=== PATIENT | female | born 1955 | race Caucasian/White ===

== ENCOUNTER → 2016-07-08 | Outpatient (CLI) | payer OTHER ==
--- NOTE | 2016-07-08 21:59 | WWHP ---
DATE OF SERVICE: 07/08/2016 CHIEF COMPLAINT: Patient is here for her routine gynecologic exam. 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 She states she has had normal Pap smears since then. The patient is without gynecologic complaints. Her last Pap smear was in 2011. The patient has a history of lichen sclerosis of the vulva and has occasional pruritus in the area where it was excised years ago. She uses Clobetasol ointment p.r.n. and this is fairly infrequent. She is otherwise without complaints. PAST MEDICAL HISTORY: Chronic hypertension and carpal tunnel syndrome, arthritis of the neck, back, and hands and gastroesophageal reflux disease. Dr. Rizzo is her primary care physician. MEDICATIONS: 1. Enalapril 5/12.5, 1 daily. 2. Motrin 400 mg daily p.r.n. 3. Tramadol 25 mg daily. 4. Clobetasol ointment 0.05% p.r.n. 5. Prilosec 20 mg daily. ALLERGIES: No known drug allergies. PAST SURGICAL HISTORY: KEYSHAWN in 1978. Cold knife conization of the cervix prior to 1978 and D&C was also performed at that time, colonoscopy 2014. Past OB history: One vaginal delivery. 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 She was diagnosed with genital HSV in 2011 and also history of lichens sclerosis which was excised in 2003. She has no other history of STDs. SOCIAL HISTORY: She previously smoked cigarettes but quit in 2004 she has about 10 to 20 alcoholic drinks per year and denies drug use. 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 FAMILY HISTORY: Paternal aunt had breast cancer. Brother and father had prostate cancer. Mother had aortic stenosis. Father also had a CVA and diabetes. REVIEW OF SYSTEMS: She thinks she has lost about 20 pounds after she went back to working in the operating room from a sitting job about a year ago. She denies respiratory, cardiac, or GI problems. PHYSICAL EXAM: Blood pressure 144/82. Height 5 feet 7 inches. Weight was refused by the patient but she states she recently weighed 170 pounds when she weighed herself. Temperature 97.8, pulse 57. This is a well-developed, well-nourished white female who is alert and oriented x3 in no acute distress. HEENT is within normal limits. NECK: Supple without mass or thyromegaly. CHEST AND LUNGS: Clear to auscultation. HEART: Regular rate and rhythm. Breasts are without mass or discharge. Axillary exam is negative for adenopathy. BACK: Negative for CVA tenderness. ABDOMEN: Soft, nontender, without palpable masses. PELVIC EXAM: External genitalia. There is a slightly scarred area on the left labia at approximately the 4:00 position. This appears to be where she had part of the vulva removed and where lichen sclerosis was found. The tissue is slightly paler than the surrounding tissue. There is no excoriation or erythema noted. Vagina reveals mild atrophy without lesions. The vaginal cuff was slightly friable upon doing the Pap smear of the vaginal cuff. There is no evidence of prolapse. Bimanual exam is negative for mass or tenderness. Rectovaginal exam is negative for mass or tenderness and is negative for occult blood. EXTREMITIES: Nontender. IMPRESSION: 1. A 60-year-old menopausal female, status post total abdominal hysterectomy for microinvasive cancer of the cervix in 1978. 2. History of focal lichen sclerosis of the vulva which was located on the left vulva and is status post excision. She continues to have occasional pruritus in this area. PLAN: 1. Pap smear of the vaginal cuff was performed. We will continue to do regular Pap smears because of her history. 2. Self-breast examination was discussed. 3. Mammogram was done in 05/06 and was benign. We will repeat this in one year. 4. Trial of Premarin vaginal cream 1 to 2 grams intravaginally 2 times per week because of some vaginal dryness and dyspareunia associated with it. 5. Temovate 0.05% ointment p.r.n. to the vulva. She will call if symptoms are worsening or if she is needing to use this frequently. 6. Osteoporosis prevention was discussed. I have recommended bone density testing since her last one was done more than 10 years ago and was normal. She states she will do this next year. 7. She will return in one year.
== END | disposition home or self-care (01) ==

== ENCOUNTER → 2016-11-10 | Outpatient (CLI) | payer OTHER ==
[2016-11-10 16:04] LABS: Potassium 4.3 mmol/L (3.5-5.1)
== END | disposition home or self-care (01) ==
LOC: LABWHC1 15:27
PROVIDERS: ATTEND Orthopaedic Surgery Hand Surgery
DX: Z01.812 Encounter for preprocedural laboratory examination (principal); M19.90 Unspecified osteoarthritis, unspecified site
CPT/HCPCS: 36415; 80051

== ENCOUNTER → 2017-03-16 | Outpatient (CLI) | payer OTHER ==
--- NOTE | 2017-03-16 17:06 | XR ---
EXAMINATION TYPE: XR chest 2V DATE OF EXAM: 03/16/2017 COMPARISON: July 25, 2010 HISTORY: Cough TECHNIQUE: Frontal and lateral views of the chest are obtained. FINDINGS: There is no heart failure nor confluent pneumonic infiltrate. Thoracic aorta is atheromato us. There is no sign of pleural effusion. Bony thorax is intact. Heart size is normal. IMPRESSION: Atheromatous aorta. Minimal subsegmental atelectasis in the left lower lung field is new compared to old exam.
== END | disposition home or self-care (01) ==
LOC: RADXRMAIN 16:30
PROVIDERS: ATTEND Internal Medicine
DX: J98.11 Atelectasis (principal); I70.0 Atherosclerosis of aorta
CPT/HCPCS: 71020

== ENCOUNTER → 2017-07-12 | Outpatient (CLI) | payer OTHER ==
[2017-07-08 15:27] VITALS: BMI 26.6
[2017-07-12 14:33] VITALS: BP 144/83; PULSE 63; RESP 16; TEMP 98.3
--- NOTE | 2017-07-12 15:12 | P.CONS ---
History of Present Illness - Reason for Consult Consult date: 07/12/17 - History of Present Illness This is 61 years old female with a chronic history of severe low back pain, in 2013 she started having low back pain with radiation to the right hip , she took non-steroidal anti-inflammatory medication and she was doing fairly well until, when she was at work , he was bending corking on some equipment, she started feeling severe low back pain, pain is constant radiated to both hips and groin area, radiated to the whole lower extremity bilaterally, [place] today with numbness and tingling sensation, scar intensity of the pain between [place] increased with any activity to 10 over 10, and some physical therapy with minimal improvement, she is able to ambulate on her own, she reported that occasionally she feels that he had no ability to move her legs, denies any fever or night sweats which she denies any change in the bowel movement or urination Past Medical History Past Medical History: Cancer, Eye Disorder, GERD/Reflux, Hyperlipidemia, Hypertension, Osteoarthritis (OA) Additional Past Medical History / Comment(s): Hx Cervical Ca-1978. Bilat Narrow Angle Glaucoma. pain lower back pt states has 1 ruptured disc and 2 herniated disc History of Any Multi-Drug Resistant Organisms: None Reported Past Surgical History: Appendectomy, Back Surgery, Hysterectomy, Orthopedic Surgery, Tonsillectomy Additional Past Surgical History / Comment(s): CTR-BILAT. D & C. COLONOSCOPY. EGD. LT KNEE SCOPE. BILAT IRIDOTOMY. CERVICAL FUSION X 2. CLOSED REDUCTION RT WRIST X 3 CHILD Past Anesthesia/Blood Transfusion Reactions: No Reported Reaction Past Psychological History: No Psychological Hx Reported Smoking Status: Never smoker Past Alcohol Use History: Rare Past Drug Use History: None Reported - Past Family History Father Family Medical History: Cancer Medications and Allergies Home Medications Medication Instructions Recorded Confirmed Type Enalapril/Hctz 04/01.5 0.5 tab PO DAILY 05/26/17 07/12/17 History Omeprazole [PriLOSEC] 40 mg PO DAILY 05/26/17 07/12/17 History traMADol HCL [Ultram] 50 mg PO HS 05/26/17 07/12/17 History Acetaminophen [Tylenol Extra 500 mg PO DAILY PRN 07/12/17 07/12/17 History Strength] Allergies Allergy/AdvReac Type Severity Reaction Status Date / Time nickel Allergy Unknown Rash/Hives Verified 07/12/17 14:23 Physical Exam Vitals: Vital Signs Temp Pulse Resp BP Pulse Ox 07/12/17 14:24 98.3 F 63 16 144/83 98 Social history : not smoker , NO ETOH , NO Illegal drugs use . Review of Systems : 1- Constitutional : no chills , no fever , no night sweats , 2- Ears : no ear discharge , no change in hearing 3-Nose, Mouth ,Throat ; no bleeding gums, no sore throat , no epistaxis , 4-Cardiovascular : Denies chest pain, , no orthopnea , no palpitation 5-Respiratory : Denies cough , no dyspnea , no hemoptysis 6-Gastrointestinal :, no change in bowel habits , no coffee- ground emesis . 7-Genitourinary : No hematuria , no discharge , no incontinence, 8-Musculoskeletal : No gait dysfunction , report low back pain with radiation to the lower extremity 9- Neurological : no ataxia , no tremor , no sezure , 10-Psychatric , no suicidal ideation no hallucination 11- Endocrine : no cold intolerence , no polyuria , no polydypsia , 12-Hematologic : no easy bleeding , no easy brusing , 13-Allergic / immunology : no angioedema , no wheezing ,no allergic rhinitis 14-Integumentary : no brttle nails , no change hair / nails , no foot/leg ulcers . Physical Examinations : 1-Constitutional : Cooperative , not in acute distress . 2-HEENT : nech ; supple , no Lymphadenopathy , no Thyromegaly , :eyes , no icterus, no photophobia . ENT : , normal oropharynx , no Thrush 3- Respiratory : Chest clear to auscultations Bilaterally , no wheezing . 4- Cardiovascular : regular rate and rhythem , S1 , S2 , no S3 , no S4. 5- Gastrointestinal: abdomen soft no tenderness , no organomegally . 6- Genitourinary : Defferred . 7-Integumentary : No cellulitis , no ulcers , normal skin turgor , no cyanotic . 8- neurologic : Cranial nerve II to XII intact , no focal neurological deffecit 9-psychatric : alert , oriented X 3 , appropriate affect , intact judgment and insight . 10-Lymphatic : no Lymphadenopathy. 11- musculoskeltal: normal gait Lumber spine moter stegnth lower extremities ,thigh and legs 5/5 Right side , 5/5 Left side deep tendon reflexes : normal Knee Jerk , normal ankle Jerk positive lumber facet Loading Test Range of motion of the lumbar spine Flexion 30 degrees, extension 10 degrees strait leg raising test , positive at 45 degree Fabere test positive RT and positive LT . Sever tenderness over the Sacroiliac joint on the R and L sides Results Comments: MRI of the lumbar spine done at [facility] 05/05/2017= L3 4 annular bulging disc and moderate spinal canal stenosis, L4-L5 disc herniation and L5-S1 there is disc herniation and mild to moderate spinal canal stenosis and there is bilateral neural foraminal narrowing at L5-S1 Assessment and Plan Plan: Assessment and plan= Lumbar radiculopathy , lumbar bulging disc disease, lumbar spinal stenosis Bilateral sacroiliitis Plan continue Motrin 800 mg 3 times a day, and continue Ultram 50 mg every 6-8 hours when necessary Patient could benefit from lumbar epidural steroid injections fluoroscopy guidance and bilateral sacroiliac injections through the injections or seizure risk, and benefits, and alternatives discussed with the patient and she agreed with the preceding Time with Patient: Greater than 30
== END | disposition home or self-care (01) ==
LOC: PNWHC3 13:57
PROVIDERS: ATTEND Specialist
DX: M48.061 Spinal stenosis, lumbar region without neurogenic claudication (principal); M51.16 Intervertebral disc disorders with radiculopathy, lumbar region; M46.1 Sacroiliitis, not elsewhere classified; I10 Essential (primary) hypertension; K21.9 Gastro-esophageal reflux disease without esophagitis; Z79.899 Other long term (current) drug therapy; Z79.891 Long term (current) use of opiate analgesic; Z91.09 Other allergy status, other than to drugs and biological substances
CPT/HCPCS: 99211

== ENCOUNTER 2017-07-15 09:55 | Day surgery (SDC) | payer OTHER ==
[2017-07-13 12:28] VITALS: BMI 26.6
[~2017-07-15 09:55] MED LIST: methylPREDNISolone ACETATE 40 MG/ML 1 ML VIAL ONE
[2017-07-15 10:15] VITALS: TEMP 97.8
[2017-07-15] MEDS ORDERED: LACTATED RINGERS 1,000 ML IV ONE (10:17)
[2017-07-15] MEDS ORDERED: LIDOCAINE 1% 20 ML VIAL (10MG/ML) FOR IV START INTRADERMA ONE (10:18)
[2017-07-15] MEDS ORDERED: methylPREDNISolone ACETATE 40 MG/ML 1 ML VIAL ONE (10:48)
--- NOTE | 2017-07-15 10:56 | P.PCN ---
Date of Procedure: 07/15/17 Surgeon: Vick Haynes Pathology: none sent Condition: stable Disposition: PACU Description of Procedure: PREOPERATIVE DIAGNOSIS: 1-Lumbar radiculitis. POSTOPERATIVE DIAGNOSIS: 1-Lumbar radiculitis. PROCEDURE 1. Lumbar epidural steroid injection under fluoroscopic guidance at the L5-S1 level. 2. Lumbar epidurogram. ANESTHESIA: Local with 1% lidocaine; IV sedation with Versed/fentanyl. EBL: Minimal PROCEDURE INDICATION: The patient with low back pain and radiculitis symptoms unresponsive to conservative treatment. Fluoroscopy was used to optimize visualization of the needle placement and to maximize safety. No use of blood thinners. PROCEDURE DESCRIPTION / TECHNIQUE: The patient was seen and identified in the preoperative area. Risks, benefits, complications, and alternatives were discussed with the patient, including but not limited to bleeding, infection, nerve damage, allergic reactions to medications, and incomplete pain relief. The patient agreed to proceed with the procedure and signed the consent after all questions were answered. IV was started, and vital signs were stable. Patient was taken to the OR and time out was completed to confirm patient position, procedure, laterality of pain, and allergies. The patient was placed in the prone position on procedure table and a pillow was placed under the abdomen to reduce lumbar lordosis. The lumbosacral area was prepped and draped in the usual sterile fashion. Critical pause was taken. Vital signs were closely monitored during the procedure. Conscious sedation was used during the procedure to decrease patients anxiety. Using anterior-posterior fluoroscopy, the L5-S1 interlaminar space was identified and the skin over this site was marked and then infiltrated with 1% lidocaine subcutaneously. Subsequently, a 20-gauge 3.5-inch Tuohy epidural needle was inserted and advanced toward the epidural space using the Loss of resistance technique and guided by AP and lateral fluoroscopy. The correct needle position in the epidural space was verified with the injection of 2 mL of the water soluble contrast dye Omnipaque 300 contrast and observing an excellent epidurogram with the epidural spread of the dye, after negative aspiration for blood and CSF and in the absence of paresthesias. Again after negative aspiration, a 7 ml mixture containing 80 mg of Depo Medrol and 3 ml of preservative free Normal Saline, and 2 ml of preservative free lidocaine 1% solution was injected and a washout of epidurogram was seen. Needle was withdrawn intact, skin was cleansed, and bandages were applied. COMPLICATIONS: None COMMENTS: DISPOSITION / PLANS: The patient was placed in a supine position and transferred to the recovery area in a stable condition for observation. There was no evidence of lower extremity motor or sensory deficit after the procedure. Patient was discharged from the recovery room after meeting discharge criteria. Home discharge instructions were given to the patient by the staff. The patient was reexamined prior to discharge and there were no issues. The patient will schedule a repeat procedure in 2-4 weeks.
[2017-07-15] MEDS ORDERED: IV FLUID CONTINUATION 1,000 ML IV ONE (11:05)
[2017-07-15 11:24] VITALS: BP 125/75; PULSE 61; RESP 16
--- NOTE | 2017-07-15 19:38 | FL ---
Fluoroscopy INDICATION: Pain FINDINGS: Fluoroscopy time: 7 seconds. Images obtained: 3. IMPRESSIONS: 1. Documentation of fluoroscopy.
== END 2017-07-15 11:45 | disposition home or self-care (01) ==
LOC: ORPAIN 09:55
PROVIDERS: ATTEND Anesthesiology
DX: M54.16 Radiculopathy, lumbar region (principal)
CPT/HCPCS: 62323; J2250; J1030; Q9965; J3010

== ENCOUNTER → 2017-10-26 | Outpatient (CLI) | payer OTHER ==
[2017-10-26 13:18] VITALS: BP 123/85; PULSE 76; TEMP 98.1; BMI 26.3
--- NOTE | 2017-10-26 13:57 | P.HPOB ---
History of Present Illness H&P Date: 10/26/17 Chief Complaint: The patient is here for her routine gynecologic exam. This is a 62-year-old with an LMP of 1978 who is status post KEYSHAWN for micro -invasive cervical cancer. The patient is without gynecologic complaints. She has been using vaginal estrogen cream and states this is very helpful for her vulvar symptoms. She no longer has needed the corticosteroid cream. She is without gynecologic complaints. Review of Systems Weight has been stable. She denies respiratory, cardiac, or G.I. problems. 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 He has no other history of STDs. Bilat Narrow Angle Glaucoma History of Any Multi-Drug Resistant Organisms: None Reported Past Surgical History: Appendectomy, Back Surgery, Hysterectomy (KEYSHAWN), Orthopedic Surgery, Tonsillectomy Additional Past Surgical History / Comment(s): CTR-BILAT. D & C. Conization of Cervix. COLONOSCOPY 2014. EGD. LT KNEE SCOPE. BILAT IRIDOTOMY. CERVICAL FUSION X 2. CLOSED REDUCTION RT WRIST X 3 CHILD Past Anesthesia/Blood Transfusion Reactions: No Reported Reaction Past Psychological History: No Psychological Hx Reported Smoking Status: Never smoker Past Alcohol Use History: Rare Past Drug Use History: None Reported Additional History: She is . 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 - Past Family History Father Family Medical History: Cancer (Prostate), CVA/TIA, Diabetes Mellitus Brother(s) Family Medical History: Cancer (Prostate) Medications and Allergies Home Medications Medication Instructions Recorded Confirmed Type Enalapril/Hctz 10/12.5 0.5 tab PO DAILY 05/26/17 10/26/17 History traMADol HCL [Ultram] 50 mg PO HS 05/26/17 10/26/17 History Acetaminophen [Tylenol Extra 500 mg PO DAILY PRN 07/12/17 07/15/17 History Strength] Cyanocobalamin [Vitamin B-12] mcg PO DAILY 10/26/17 History Potassium mg PO DAILY 10/26/17 History Allergies Allergy/AdvReac Type Severity Reaction Status Date / Time nickel Allergy Unknown Rash/Hives Verified 10/26/17 13:08 Exam - Vital Signs Vital signs: Vital Signs Temp Pulse BP 10/26/17 13:14 98.1 F 76 123/85 Intake and Output 10/25/17 10/26/17 10/26/17 22:59 06:59 14:59 Other: Weight 76.204 kg Height 5'7", BMI 26.3. This is a well-developed well-nourished white female who is alert and oriented times 3 in no acute distress. HEENT: Within normal limits. NECK: Supple without mass or thyromegaly. CHEST AND LUNGS: Clear to auscultation. HEART: Regular rate and rhythm. BREASTS: Are without mass or discharge. AXILLARY EXAM: Negative for adenopathy. BACK: Negative for CVA tenderness. ABDOMEN: Soft, nontender, without palpable masses. PELVIC EXAM: External genitalia appears normal with mild atrophy. No significant vulvar pallor is noted. Vagina appears normal with minimal atrophy. There is no evidence of prolapse. Bimanual examination is negative for mass or tenderness. RECTAL EXAM: Rectovaginal exam is negative for mass or tenderness and is negative for occult blood. EXTREMITIES: Nontender. IMPRESSION: 1. 62-year-old menopausal female status post KEYSHAWN for cervical cancer in 1978. No evidence of recurrence. 2. History of lichen sclerosis which is symptomatically improved with vaginal estrogen cream. PLAN: 1. Pap smear of the vaginal cuff was performed because of her history of cervical cancer. 2. Self breast awareness was discussed. 3. Mammogram was recently done 05/26/17 and was negative. She will repeat this in one year. 4. The patient is requesting a paper prescription for the Premarin vaginal cream which she will continue. 5. Osteoporosis prevention was discussed. She states she had a bone density test done earlier this year which was normal. 6. She will return in one year.
== END | disposition home or self-care (01) ==
LOC: WWCWWP 12:48
PROVIDERS: ATTEND Obstetrics & Gynecology
DX: Z01.419 Encounter for gynecological examination (general) (routine) without abnormal findings (principal)

== ENCOUNTER → 2018-11-22 | Outpatient (CLI) | payer MEDICARE, BC ==
[2018-11-22 11:10] VITALS: BP 128/69; PULSE 66; RESP 18; TEMP 98.8; BMI 27.7
--- NOTE | 2018-11-22 12:37 | P.HPOB ---
History of Present Illness H&P Date: 11/22/18 Chief Complaint: The patient is here for her routine gynecologic exam and ma mmogram. This is a 63-year-old with an LMP of 1978. The patient is status post KEYSHAWN for micro-invasive cervical cancer. The patient states she has noticed slight right vaginal itching near the introitus. She states this was better when she used estrogen vaginal cream, but she has not been using it recently. She has also had a couple of genital HSV outbreaks this past year and is requesting medication that she can take with outbreaks. Review of Systems The patient has gained 5 pounds over the last year. She denies respiratory, cardiac, or G.I. problems. She has had some back issues. 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 He has no other history of STDs. Bilat Narrow Angle Glaucoma. History of Any Multi-Drug Resistant Organisms: None Reported Past Surgical History: Appendectomy, Back Surgery, Hysterectomy, Orthopedic Surgery, Tonsillectomy Additional Past Surgical History / Comment(s): CTR-BILAT, D & C,Conization of Cervix,COLONOSCOPY 2014,EGD,LT KNEE SCOPE,BILAT IRIDOTOMY,CERVICAL FUSION X 2 ,CLOSED REDUCTION RT WRIST X 3 CHILD. KEYSHAWN 1978. Past Anesthesia/Blood Transfusion Reactions: No Reported Reaction Past Psychological History: No Psychological Hx Reported Smoking Status: Never smoker Past Alcohol Use History: Rare Past Drug Use History: None Reported Additional History: She is . 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 - Past Family History Brother(s) Family Medical History: Cancer Additional Family Medical History / Comment(s): Prostate cancer. Father Family Medical History: Cancer, CVA/TIA, Diabetes Mellitus Additional Family Medical History / Comment(s): Paternal aunt had breast cancer. Father had prostate cancer. Mother Additional Family Medical History / Comment(s): Aortic stenosis. Medications and Allergies Home Medications Medication Instructions Recorded Confirmed Type Enalapril/Hctz 10/12.5 0.5 tab PO DAILY 05/26/17 11/22/18 History traMADol HCL [Ultram] 50 mg PO HS 05/26/17 11/22/18 History Acetaminophen [Tylenol Extra 500 mg PO DAILY PRN 07/12/17 11/22/18 History Strength] Cyanocobalamin [Vitamin B-12] mcg PO DAILY 10/26/17 History Potassium mg PO DAILY 10/26/17 History Ibuprofen [Motrin] 400 mg PO Q4H 11/22/18 11/22/18 History amLODIPine BESYLATE [Norvasc] 5 mg PO 11/22/18 History Allergies Allergy/AdvReac Type Severity Reaction Status Date / Time nickel Allergy Unknown Rash/Hives Verified 10/26/17 13:08 Exam Vital Signs Temp Pulse Resp BP Pulse Ox 11/22/18 11:02 98.8 F 66 18 128/69 96 Intake and Output 11/21/18 11/22/18 11/22/18 22:59 06:59 14:59 Other: Weight 78.018 kg Height 5'6", weight 172 pounds, BMI 27.8. This is a well-developed well-nourished white female who is alert and oriented times 3 in no acute distress. HEENT: Within normal limits. NECK: Supple without mass or thyromegaly. CHEST AND LUNGS: Clear to auscultation. HEART: Regular rate and rhythm. BREASTS: Are without mass or discharge. AXILLARY EXAM: Negative for adenopathy. BACK: Negative for CVA tenderness. ABDOMEN: Soft, nontender, without palpable masses. PELVIC EXAM: External genitalia appears normal with mild to moderate atrophy. Vagina: there is a benign appearing slightly scarred area measuring approximately 8 mm at the posterior vagina near the introitus which she states is the area that has had occasional pruritus. This has the appearance of an old scratched area the rest of the vagina appears normal with mild atrophy. There is no evidence of prolapse. Bimanual examination is negative for mass or tenderness. RECTAL EXAM: Rectovaginal exam is negative for mass or tenderness and is negative for occult blood. EXTREMITIES: Nontender. IMPRESSION: 1. 63-year-old menopausal female status post KEYSHAWN for microinvasive cervical cancer in 1978. No evidence of recurrence. 2. Slightly pruritic area just inside of the introitus on the right side that has a benign appearance. She states her symptoms resolve when she uses estrogen vaginal cream. PLAN: 1. Pap smear of the vaginal cuff was performed because of her history of cervical cancer. 2. Self breast awareness was discussed with the patient. 3. Screening mammogram will be done today. 4. Osteoporosis prevention was discussed. I have stressed the importance of adequate calcium, vitamin D and regular exercise. Recommended amounts of calcium and vitamin D were also discussed. I have recommended bone density screening. The order slip was given to the patient. 5. Restart Premarin vaginal cream. 1 g intravaginally twice weekly. Also a prescription for Valtrex 500 mg BID times 3 days which she will start at the onset of HSV outbreak symptoms. The electronic prescription will be sent to [facility] pharmacy on [address].She was advised to return in one year for her annual well woman exam.
--- NOTE | 2018-11-23 11:01 | MM ---
Reason for exam: screening (asymptomatic). Last mammogram was performed 1 year and 6 months ago. History: Patient is postmenopausal and has history of endometrial cancer at age 23. Family history of breast cancer in paternal aunt at age 74. Took estrogen for 1 year. Physical Findings: A clinical breast exam by your physician is recommended on an annual basis and results should be correlated with mammographic findings. MG 3D Screening Mammo W/Cad Bilateral CC and MLO view(s) were taken. Prior study comparison: May 26, 2017, bilateral MG screening mammo w CAD. April 30, 2016, bilateral MG screening mammo w CAD. There are scattered fibroglandular densities. No suspicious abnormality. No significant changes when compared with prior studies. ASSESSMENT: Negative, BI-RAD 1 RECOMMENDATION: Routine screening mammogram of both breasts in 1 year.
== END | disposition home or self-care (01) ==
LOC: WWCWWP 10:37
PROVIDERS: ATTEND Obstetrics & Gynecology
DX: Z12.31 Encounter for screening mammogram for malignant neoplasm of breast (principal)
CPT/HCPCS: 77063; 77067

== ENCOUNTER 2019-05-31 10:56 | Day surgery (SDC) | payer MEDICARE, BC ==
[2019-05-30 13:52] VITALS: BMI 25.9
[~2019-05-31 10:56] MED LIST changes: +LACTATED RINGERS 1,000 ML IV SCH; +LIDOCAINE 1% 20 ML VIAL (10MG/ML) FOR IV START INTRADERMA PRN; -methylPREDNISolone ACETATE 40 MG/ML 1 ML VIAL ONE
[2019-05-31 11:16] VITALS: RESP 16; TEMP 97
[2019-05-31] MEDS ORDERED: LIDOCAINE 1% INJ 10MG/ML (20 ML MDV) ONE (11:31)
[2019-05-31] MEDS ORDERED: fentaNYL (PF) 50 MCG/ML 2 ML AMP ONE (11:31)
[2019-05-31] MEDS ORDERED: PROPOFOL 10 MG/ML 20 ML VIAL IV ONE (11:31)
[2019-05-31] MEDS ORDERED: MIDAZOLAM 2 MG/2 ML VIAL ONE ×2 (11:31)
--- NOTE | 2019-05-31 12:12 | P.PCN ---
Date of Procedure: 05/31/19 Procedure(s) Performed: Brief history: Patient is a pleasant 63-year-old white female scheduled for an elective upper endoscopy as well as colonoscopy as a part of evaluation of reflux and history of GERD/Oshea's esophagus and prior history of colon polyps Procedure performed: Esophagogastroduodenoscopy with biopsy Colonoscopy Preoperative diagnosis: GERD/Oshea's esophagus History of colon polyps [place]est[place] [facility] [place]: After informed consent was obtained from the patient was brought into the endoscopy unit and IV sedation was administered by anesthesia under continuous monitoring. Initially upper endoscopy was done. The Olympus GF 160 video endoscope was inserted inserted into the mouth and esophagus intubated without any difficulty and was gradually advanced into the stomach and duodenum and carefully examined. The bulb and second part of the duodenum appeared normal. The scope was then withdrawn into the stomach adequately insufflated with air and upon careful examination the antrum and body, cardia and fundus appeared normal. The scope was then withdrawn into the esophagus. The GE junction was located at 40 cm to the incisors. There was a 2 mm tongue of Oshea's appearing mucosa just proximal to the GE junction that was biopsied. No erythema erosions or ulcerations. Rest of the esophagus appeared normal. Patient tolerated the procedure well. At this time the patient continued to remain sedation. Initial digital rectal examination was normal. Olympus CF 160 video colonoscope was then inserted into the rectum and gradually advanced to the cecum without any difficulty. Careful examination was performed as the scope was gradually being withdrawn. The prep was poor. The cecum, ascending colon, transverse colon, descending colon, sigmoid colon and rectum appeared normal. Retroflexion was performed in the rectum and no lesions were noted. Patient tolerated the procedure well. Impression: 1. Upper endoscopy revealed a 2 mm tongue of Oshea's appearing mucosa just proximal to the GE junction that was biopsied. 2. Colonoscopy was within normal limits with no evidence of colitis or colorectal neoplasia. Poor prep was noted Recommendations: Findings of this examination were discussed with the patient as well as a family. She was advised to follow with the biopsy results. She will continue with Prilosec 20 mg daily and follow antireflux measures. She was advised to have a repeat colonoscopy in 5 years.
[2019-05-31 12:48] VITALS: BP 124/72; PULSE 72
== END 2019-05-31 13:42 | disposition home or self-care (01) ==
LOC: ORWHC2ENDO 10:56
PROVIDERS: ATTEND Internal Medicine Gastroenterology
DX: Z86.010 Personal history of colon polyps (principal); K21.0 Gastro-esophageal reflux disease with esophagitis; K22.70 Barrett's esophagus without dysplasia; I10 Essential (primary) hypertension; E78.5 Hyperlipidemia, unspecified; H40.9 Unspecified glaucoma; M50.30 Other cervical disc degeneration, unspecified cervical region; Z79.891 Long term (current) use of opiate analgesic; Z79.899 Other long term (current) drug therapy; Z91.09 Other allergy status, other than to drugs and biological substances; Z98.1 Arthrodesis status; Z87.898 Personal history of other specified conditions
CPT/HCPCS: 88305; 43239; J2250; J2001; J3010; J2704; G0105

== ENCOUNTER → 2019-12-27 | Outpatient (CLI) | payer MEDICARE, BC ==
[2019-12-27 15:31] LABS: Appearance,Urine Clear (Clear); Bilirubin,Urine Negative (Negative); Blood,Urine Negative (Negative); Color,Urine Yellow; Glucose,Urine (UA) Negative (Negative); Ketones,Urine Negative (Negative); Leukocyte Esterase,Urine Negative (Negative); Nitrite,Urine Negative (Negative); Protein,Urine Trace (Negative); Specific Gravity,Urine 1.028 (1.001-1.035)
[2019-12-27 15:42] LABS: HCT 40.4 % (34.0-46.0); HGB 13.2 gm/dL (11.4-16.0); INR 0.9 (<1.2); MCH 30.1 pg (25.0-35.0); MCHC 32.6 g/dL (31.0-37.0); MCV 92.4 fL (80.0-100.0); Mean Platelet Volume 8.5; Partial Thromboplastin Time 23.5 sec (22.0-30.0); Platelet Count 278 k/uL (150-450); Prothrombin Time 9.6 sec (9.0-12.0); RBC 4.37 m/uL (3.80-5.40); RDW 12.6 % (11.5-15.5); WBC 8.5 k/uL (3.8-10.6)
[2019-12-27 16:22] LABS: Albumin 4.7 g/dL (3.5-5.0); Potassium 4.5 mmol/L (3.5-5.1); Total Bilirubin 0.7 mg/dL (0.2-1.3); Total Protein 7.3 g/dL (6.3-8.2)
== END | disposition home or self-care (01) ==
LOC: LABPAT 13:48
PROVIDERS: ATTEND Orthopaedic Surgery
DX: Z01.818 Encounter for other preprocedural examination (principal); Z01.812 Encounter for preprocedural laboratory examination
CPT/HCPCS: 80053; 81003; 85027; 85610; 85730; 87070

== ENCOUNTER 2020-01-02 05:46 | Day surgery (SDC) | payer MEDICARE, BC ==
[2019-12-29 10:14] VITALS: BMI 27.1
[~2020-01-02 05:46] MED LIST changes: +ACETAMINOPHEN TAB 500 MG TAB PO ONE; +GABAPENTIN 300 MG CAP PO ONE; +HYDROmorphone 0.5 MG/0.5 ML SYRINGE IVP PRN; -LACTATED RINGERS 1,000 ML IV SCH; -LIDOCAINE 1% 20 ML VIAL (10MG/ML) FOR IV START INTRADERMA PRN; +MELOXICAM 7.5 MG TAB PO ONE; +MIDAZOLAM 2 MG/2 ML VIAL IV PRN; +TRANEXAMIC ACID 1,000 MG in SODIUM CHLORIDE 0.9% 100 ML IVPB ONE
[2020-01-02] MEDS ORDERED: ONDANSETRON 4 MG/2 ML VIAL ONE (05:50)
[2020-01-02] MEDS ORDERED: ACETAMINOPHEN TAB 500 MG TAB ONE (05:50)
[2020-01-02] MEDS: ONDANSETRON 4 MG/2 ML VIAL IVP ONE ×2 (06:18→09:00)
[2020-01-02] MEDS: LACTATED RINGERS 1,000 ML IV SCH (06:19)
[2020-01-02] MEDS ORDERED: ONDANSETRON 4 MG/2 ML VIAL IVP PRN (06:52)
[2020-01-02] MEDS ORDERED: DIAZEPAM 5 MG TAB PO PRN (06:52)
[2020-01-02] MEDS ORDERED: NALOXONE 0.4 MG/ML 1 ML VIAL IV PRN (06:52)
[2020-01-02] MEDS ORDERED: hydrOXYzine PAMOATE 25 MG CAP PO PRN (06:52)
[2020-01-02] MEDS ORDERED: MAGNESIUM HYDROXIDE 2,400 MG/10 ML CUP PO PRN (06:52)
[2020-01-02] MEDS ORDERED: HYDROmorphone 0.5 MG/0.5 ML SYRINGE IVP PRN ×2 (06:52)
[2020-01-02] MEDS ORDERED: HYDROcodone/APAP 5-325MG 1 EACH TAB PO PRN (06:52)
[2020-01-02] MEDS ORDERED: SODIUM CHLORIDE 0.9% IRRIG 1,000 ML BTL IRRIGATION ONE (06:55)
[2020-01-02] MEDS ORDERED: MIDAZOLAM 2 MG/2 ML VIAL ONE (06:55)
[2020-01-02] MEDS ORDERED: TRANEXAMIC ACID 1,000 MG/10 ML VIAL ONE (06:55)
[2020-01-02] MEDS ORDERED: SODIUM CHLORIDE 0.9% 100 ML BAG ONE (06:55)
[2020-01-02] MEDS ORDERED: ePHEDrine SULFATE/0.9% NACL/PF 50 MG/5 ML SYRINGE IV ONE (06:55)
[2020-01-02] MEDS ORDERED: HEPARIN SODIUM,PORCINE 10,000 UNIT/ML 1 ML VIAL ONE (06:55)
[2020-01-02] MEDS ORDERED: fentaNYL (PF) 50 MCG/ML 2 ML AMP ONE (06:55)
[2020-01-02] MEDS ORDERED: PROPOFOL 10 MG/ML 20 ML VIAL IV ONE (06:55)
[2020-01-02] MEDS ORDERED: ceFAZolin 3,000 MG in SODIUM CHLORIDE 0.9% IRRIGATIO 3,000 ML IRRIGATION ONE (06:59)
[2020-01-02] MEDS: ROPIVACAINE 246.25 MG, EPINEPHrine 0.5 MG, KETOROLAC 30 MG, cloNIDine HCL/PF 80 MCG, WA... MISCELLANE ONE ×10 (07:19→08:01)
[2020-01-02] MEDS ORDERED: LACTATED RINGERS 1,000 ML IV ONE (08:07)
--- NOTE | 2020-01-02 08:35 | P.OP ---
Date of Procedure: 01/02/20 Preoperative Diagnosis: Severe osteoarthritis right hip Postoperative Diagnosis: Severe osteoarthritis right hip Procedure(s) Performed: Right total hip arthroplasty with a direct anterior approach Implants: Elliott and nephew Polarstem size 1 standard Elliott & Nephew R3, 3 hole acetabular shell, 48 mm Elliott & Nephew reflection 6.5 mm cancellus screw, 20 mm 2 Elliott & Nephew R3, XLPE 20 acetabular liner Elliott & Nephew Oxinium femoral head 32 m, -3 All components were press-fit. The articulation is Oxinium on polyethylene. Anesthesia: spinal Surgeon: Jeremy Jesus Ms Sql Developer #1: Cristina Gonzalez Estimated Blood Loss (ml): 100 Pathology: other (Femoral head) Condition: stable Disposition: PACU Indications for Procedure: After failure of conservative treatment we discussed the surgical and nonsurgical treatment options at length. Patient wishes to proceed with a total hip arthroplasty with a direct anterior approach. Complications specific to this procedure were discussed at length, including but not limited to infection, leg length discrepancy, dislocation, and nerve injury. Covid-19 was also discussed at length with the patient, and they are aware of the current policies and procedures. The patient was given the option of delaying surgery, but they elect to proceed knowing these risks. Patient is aware of all these complications and informed consent was obtained Operative Findings: The operative findings are consistent with severe osteoarthritis of the right hip Description of Procedure: Patient was seen and evaluated in the preoperative area, consent was reviewed, and the surgical site was marked with a skin marker. Patient was then brought to the operating room and given prophylactic antibiotics intravenously. 1 g of Tranexamic acid was also given. A spinal anesthetic was administered by the anesthesia department. The patient was then placed on the Chester table with the bony prominences well-padded. The hip area was then prepped and draped in usual sterile fashion. A universal timeout was then performed, which confirmed the patient's name, surgical site, ALLERGIES, and procedure being performed. Next the incision site was located at 1 cm distal and 1 cm lateral to the anterior superior iliac spine. The skin and subcutaneous tissues were sharply incised. Incision was carefully dissected down to the fascia overlying the tensor fascia silas muscle. This fascia was then incised in line with the incision. Next, using blunt finger dissection, the tensor fascia silas muscle was dissected off its investing fascia. The muscle was then carefully retracted laterally with a cobra retractor over the lateral neck of the femur. Next, the circumflex vessels were identified and cauterized using the AquaMantis device. The anterior hip capsule was then exposed. The capsule was then opened and an inverted T fashion. Cobra retractors were then placed intracapsularly. The proximal femur was then visualized. The femoral neck was then osteotomized appropriate level above the lesser trochanter. Small amount of traction was placed with the Chester table. A small wedge of bone was then removed from the remaining femoral head. Next, using a corkscrew femoral head was easily removed from the acetabulum. On gross visual inspection, the femoral head had complete loss of articular cartilage in multiple periarticular osteophytes. Attention was then turned to the acetabulum. the acetabulum was exposed and any remaining labrum was excised. Sequential reaming of the acetabulum was performed using fluoroscopic guidance. When the appropriate size was reached, a trial was then placed. The position and fit of the trial was checked with fluoroscopy. The trial was then removed. Then, using fluoroscopic guidance, the final implant was impacted at 20 of anteversion and 40 of abduction, and fully seated in the acetabulum. 2 screws were then placed in the acetabulum. Again fluoroscopy was used to check position of the screws. Next, the liner was then impacted, with a 20 elevated liner located in the anterior superior quadrant. Component locking was confirmed. Attention was then directed to the femur. With the aid of the Chester table, the femur was externally rotated to approximately 130, extended, and abducted under the opposite leg. A side hook was then placed under the proximal femur, and the side hook elevator was used to elevate the proximal femur. Retractors were then placed. A capsular release was performed, as well as a release of the conjoined tendon, which afforded excellent visualization of the proximal femur. Next, a box osteotome was used to lateralize the proximal femur. A dairy hand was then used to locate the femoral canal. Sequential broaching was then performed with appropriate size which afforded excellent fixation in the proximal femur. A trial was then placed with appropriate head and neck, and the hip was gently reduced with the aid of the Chester table. Fluoroscopy was then used to check position of the components, as well as to ensure equal leg lengths. The hip was then gently dislocated and the trials were then removed. Final implants were then impacted and the hip was again reduced. Final fluoroscopic x-rays confirmed that the components were in anatomic position, as well as equal leg lengths. The hip was also taken through range of motion, and found to be stable. The hip was then copiously irrigated with antibiotic solution with pulsatile lavage. The hip was then irrigated with Irrisept solution. The soft tissues were then injected with a ropivacaine solution, which consisted of 246.25 mg of ropivacaine, 0.5 mg of epinephrine, 30 mg of Toradol, 80 g of clonidine, and 48.45 mL of sterile water, for a total of 100 mL of fluid injected. A second dose of 1 g of Tranexamic acid was also given. the fascia was then closed with 2-0 strata fix suture. The subcutaneous tissue was closed with 3-0 Vicryl. The subcuticular tissue was closed with 3-0 strata fix suture. The skin was then closed with Dermabond glue and a sterile silver dressing. The patient was then transferred to the recovery room in stable condition. The pastry assistant CAREN Brown was required due to the complexity of surgery, and the need for skilled surgical coder for positioning, draping, exposure, retraction, and closure of the wound.
[2020-01-02] MEDS ORDERED: HYDROmorphone 0.5 MG/0.5 ML SYRINGE IVP ONE ×4 (08:39→08:54)
--- NOTE | 2020-01-02 08:53 | FL ---
Fluoroscopy INDICATION: Pain FINDINGS: Fluoroscopy time: 32 seconds. Images obtained: 2. IMPRESSIONS: 1. Documentation of fluoroscopy.
[2020-01-02] MEDS ORDERED: PROMETHAZINE INJ 25 MG/ML 1 ML VIAL IVPB ONE (09:39)
[2020-01-02] MEDS: SODIUM CHLORIDE 0.9% 1,000 ML IV SCH ×2 (11:36→21:24)
--- NOTE | 2020-01-02 11:43 | XR ---
EXAMINATION TYPE: XR Hip Limited RT DATE OF EXAM: 01/02/2020 COMPARISON: 05/09/2014 HISTORY: Post right hip replacement TECHNIQUE: One view AP right hip FINDINGS: Femoral component and acetabular component are present. No acute fractures are evident. IMPRESSION: 1. No acute fractures post right hip replacement
--- NOTE | 2020-01-02 15:57 | P.CONS ---
History of Present Illness - Reason for Consult Consult date: 01/02/20 hypertension Requesting physician: Jeremy Jesus - Chief Complaint right hip pain - History of Present Illness Patient is a 64-year-old female with his lipidemia, hypertension, and GERD who presented for elective right total hip arthroplasty. She underwent a direct anterior approach right total hip arthroplasty on 01/01 without any immediate postoperative complications. Patient seen and examined at bedside. She denies any chest pain, shortness breath, nausea, vomiting, or lightheadedness after surgery. She reports that she has had right hip pain for the last 13 months. It began after working out in her garden. Tried physical therapy but not much improvement. Tried a steroid injection in hip which helped for 3 months. She denies any recent illness. She does use tramadol and Tylenol arthritis for her pain, she reports that she intermittently uses CBD oil. Review of Systems Pertinent positives and negatives as discussed in HPI, a complete review of systems was performed and all other systems are negative. Past Medical History Past Medical History: Cancer, Eye Disorder, GERD/Reflux, Hyperlipidemia, Hypertension, Osteoarthritis (OA) Additional Past Medical History / Comment(s): degenerative disk disease in neck, Hx Cervical Ca-1978, genital HSV in 2011 and history of lichen sclerosis in 2003. hx one migraine, palpitations, heart murmer, hiatal hernia, barretts esophagus, hx narrow angle glaucoma corrected surgically History of Any Multi-Drug Resistant Organisms: None Reported Past Surgical History: Appendectomy, Back Surgery, Hysterectomy, Orthopedic Surgery, Tonsillectomy Additional Past Surgical History / Comment(s): carpal tunnel-BILAT, D & C, Conization of Cervix, COLONOSCOPY,EGD,LT KNEE arthroscopy,BILAT IRIDOTOMY,CERVICAL FUSION X 2 ,CLOSED REDUCTION RT WRIST X 3 CHILD. jose juan cataracts, rt basal joint arthrosplasty rt thumb, lumbar fusion, steroid injection to hip Past Anesthesia/Blood Transfusion Reactions: Postoperative Nausea & Vomiting (PONV) Additional Past Anesthesia/Blood Transfusion Reaction / Comm: had nausea/gagging with lumbar fusion surgery Past Psychological History: No Psychological Hx Reported Smoking Status: Former smoker Past Alcohol Use History: None Reported Past Drug Use History: None Reported Additional Drug Use History / Comment(s): cbd - Past Family History Brother(s) Family Medical History: Cancer Additional Family Medical History / Comment(s): Prostate cancer. Mother Additional Family Medical History / Comment(s): Aortic stenosis. Father Family Medical History: Cancer Additional Family Medical History / Comment(s): Father had prostate cancer. Medications and Allergies Home Medications Medication Instructions Recorded Confirmed Type traMADol HCL [Ultram] 50 mg PO HS 05/26/17 01/02/20 History amLODIPine BESYLATE [Norvasc] 2.5 mg PO W/SUPPER 11/22/18 01/02/20 History Cholecalciferol (Vitamin D3) 2,000 unit PO DAILY 05/30/19 01/02/20 History [Vitamin D3] Magnesium Oxide [Mag-Ox] 400 mg PO DAILY 05/30/19 01/02/20 History Omeprazole [PriLOSEC] 20 mg PO QAM 05/30/19 01/02/20 History valACYclovir [Valtrex] 500 mg PO BID PRN 05/30/19 01/02/20 History Acetaminophen [Tylenol Arthritis] 650 mg PO HS 12/28/19 01/02/20 History Ascorbic Acid [Vitamin C] 2,000 mg PO DAILY 12/28/19 01/02/20 History Aspirin [Adult Low Dose Aspirin EC] 81 mg PO DAILY 12/28/19 01/02/20 History Cannabidiol (Cbd) Extract 1 dose PO DAILY PRN 12/28/19 01/02/20 History [Epidiolex] Cyanocobalamin/Cobamamide [Vitamin 1 each SL DAILY 12/28/19 01/02/20 History B-12 5,000 Mcg Tab Sl] Enalapril/Hydrochlorothiazide 0.5 tab PO DAILY 12/28/19 01/02/20 History [Enalapril/Hydrochlorothiazide 10-25 mg Tablet] Lortab 7.5/325 1 tab PO DAILY PRN 12/28/19 01/02/20 History Naproxen Sodium [Aleve] 220 mg PO BID 12/28/19 01/02/20 History Ubidecarenone [Co Q-10] 100 mg PO DAILY 12/28/19 01/02/20 History Vit C/E/Zn/Coppr/Lutein/Zeaxan 1 each PO BID 12/28/19 01/02/20 History [Preservision Areds 2 Softgel] Allergies Allergy/AdvReac Type Severity Reaction Status Date / Time nickel Allergy Unknown Rash/Hives Verified 01/02/20 05:54 methylprednisolone AdvReac sleeplessne Verified 01/02/20 05:54 [From Depo-Medrol] ss,active Physical Exam Osteopathic Statement: *. No significant issues noted on an osteopathic structural exam other than those noted in the History and Physical/Consult. Vitals: Vital Signs Temp Pulse Resp BP Pulse Ox 01/02/20 10:30 78 16 128/65 100 01/02/20 10:00 80 16 123/59 96 01/02/20 09:45 79 16 151/72 95 01/02/20 09:30 80 16 144/68 100 01/02/20 09:15 75 16 132/63 100 01/02/20 09:00 76 16 126/60 100 01/02/20 08:45 74 16 127/58 100 01/02/20 08:33 97.4 F L 79 16 125/75 100 01/02/20 06:20 97 F L 69 16 169/82 97 Intake and Output 01/01/20 01/02/20 01/02/20 22:59 06:59 14:59 Intake Total 851 550 Output Total 100 Balance 851 450 Intake: IV 851 550 Output: Estimated Blood Loss 100 Other: Weight 81.1 kg 81.1 kg General: non toxic, no distress, appears at stated age, normal weight Derm: no unusual rashes/lesions no unusual ecchymoses, warm, dry Head: atraumatic, normocephalic, symmetric Eyes: EOMI, no lid lag, anicteric sclera, pupils equal round reactive to light ENT: Nose and ears atraumatic, no thrush, no pharyngeal erythema Neck: No thyromegaly, no cervical lymphadenopathy, trachea midline, supple Mouth: no lip lesion, mucus membranes moist Cardiovascular: S1S2 reg, no murmur, positive posterior tibial pulse bilateral, no edema, capillary refill less than 2 seconds Lungs: CTA bilateral, no rhonchi, no rales , no accessory muscle use Abdominal: soft, nontender to palpation, no guarding, no appreciable organomegaly, normal bowel sounds Ext: no gross muscle atrophy, muscle strength 5 out of 5 in upper extremities grossly, no contractures, moving left hip and leg normally, able to wiggle toes and flex and extend right hip Neuro: CN II-XI grossly intact, light touch intact all 4 extremities, finger to nose within normal limits, Psych: Alert, oriented, appropriate affect Assessment and Plan Assessment: Patient is a 64-year-old female status post direct right anterior hip arthroplasty. Pain management and DVT prophylaxis per orthopedic surgery. Hypertension -controlled -Resume home medications other than HCTZ -Follow blood pressures Dyslipidemia - diet controlled, outpatient follow-up GERD - PPI Thank you for allowing us to participate in the care of this pleasant patient. Do not hesitate to contact us with questions. Someone can be reached from the [facility] hospitalist group all hours of the day at [phone] or via [employer].
[2020-01-02] MEDS ORDERED: amLODIPine 2.5 MG TAB PO SCH (17:30)
[2020-01-02] MEDS: HYDROcodone/APAP 5-325MG 1 EACH TAB PO PRN (19:09)
[2020-01-02] MEDS ORDERED: SENNOSIDES-DOCUSATE SODIUM 1 EACH TAB PO SCH (21:00)
[2020-01-02] MEDS: VIT A,C & E-LUTEIN-MINERALS 1 EACH TAB PO SCH (21:24)
[2020-01-02] MEDS: ASPIRIN 325 MG TAB PO SCH (21:24)
[2020-01-02] MEDS: HYDROmorphone 0.5 MG/0.5 ML SYRINGE IVP PRN (21:30)
[2020-01-02 22:58] VITALS: PULSE 70; RESP 17
[2020-01-03] MEDS: HYDROmorphone 0.5 MG/0.5 ML SYRINGE IVP PRN (01:23)
[2020-01-03] MEDS: LACTATED RINGERS 1,000 ML IV SCH (06:16)
[2020-01-03] MEDS: HYDROcodone/APAP 5-325MG 1 EACH TAB PO PRN (06:16)
[2020-01-03] MEDS ORDERED: PANTOPRAZOLE 40 MG TABLET PO SCH (07:30)
[2020-01-03 07:44] LABS: Basophils % (A) 0 %; Eosinophils # (A) 0.1 k/uL (0-0.7); Eosinophils % (A) 1 %; HGB 10.3 gm/dL (11.4-16.0); Lymphocytes # (A) 0.9 k/uL (1.0-4.8); Lymphocytes % (A) 11 %; MCH 31.6 pg (25.0-35.0); MCHC 34.3 g/dL (31.0-37.0); MCV 92.2 fL (80.0-100.0); Mean Platelet Volume 7.6; Monocytes # (A) 0.6 k/uL (0-1.0); Monocytes % (A) 7 %; Neutrophils # (A) 6.2 k/uL (1.3-7.7); Neutrophils % (A) 80 %; Platelet Count 192 k/uL (150-450); RBC 3.26 m/uL (3.80-5.40); RDW 12.5 % (11.5-15.5); WBC 7.8 k/uL (3.8-10.6)
[2020-01-03 07:49] VITALS: BP 111/67; TEMP 99
[2020-01-03] MEDS ORDERED: MELOXICAM 7.5 MG TAB PO SCH (09:00)
[2020-01-03] MEDS ORDERED: ASCORBIC ACID 500 MG TAB PO SCH (09:00)
[2020-01-03] MEDS ORDERED: LISINOPRIL 10 MG TAB PO SCH (09:00)
[2020-01-03] MEDS ORDERED: HYDROCHLOROTHIAZIDE 12.5 MG CAP PO SCH (09:00)
[2020-01-03] MEDS: ASPIRIN 325 MG TAB PO SCH (09:14)
[2020-01-03] MEDS: VIT A,C & E-LUTEIN-MINERALS 1 EACH TAB PO SCH (09:14)
[2020-01-03] MEDS ORDERED: HYDROcodone/APAP 7.5-325MG 1 EACH TAB PO PRN ×2 (09:43)
--- NOTE | 2020-01-03 09:50 | P.DS ---
Providers Expected date of discharge: 01/03/20 Attending physician: Jeremy Jesus Consults: 01/02/20 06:52 Consult Physician Routine Consulting Provider: Anya Berman Consult Reason/Comments: medical management Do you want consulting provider notified?: Yes Primary care physician: Ruddy Rizzo - Discharge Diagnosis(es) (1) S/P total hip arthroplasty Current Visit: Yes Status: Acute (2) Osteoarthritis of right hip Current Visit: Yes Status: Acute Hospital Course: This is a 64-year-old female with known history of degenerative arthritis of the right hip. The patient presents for evaluation. After discussion and consideration patient elects to proceed with total hip arthroplasty. The patient is seen preoperatively by Dr. Jesus and medically cleared for surgery by their primary care physician. Patient is admitted to [facility] on 01/02/2020 for total hip arthroplasty. The procedures performed without complication or sequelae. The patient is doing well postoperatively. Labs and vital signs are stable on day of discharge. On day of discharge patient's hip incision is healing well. There is minimal erythema. There is no drainage noted at this time. There is minimal soft tissue swelling to the hip and thigh. Patient has full foot and ankle motion without difficulty or pain. Calf is soft and nontender to palpation. Neurovascular status to the right lower extremity is intact. Patient is discharged home in good condition. Opioid start talking form is reviewed and signed at patient bedside. Please see med rec for accurate list of home medications. Plan - Discharge Summary Discharge Rx Participant: No New Discharge Prescriptions: New Aspirin 325 mg PO BID #60 tab HYDROcodone/APAP 7.5-325MG [[place] 7.5-325] 1 - 2 tab PO Q6H PRN #32 tab PRN Reason: Pain Sennosides [Senokot] 2 tab PO DAILY PRN #60 tablet PRN Reason: Constipation No Action traMADol HCL [Ultram] 50 mg PO HS amLODIPine BESYLATE [Norvasc] 2.5 mg PO W/SUPPER Cholecalciferol (Vitamin D3) [Vitamin D3] 2,000 unit PO DAILY Omeprazole [PriLOSEC] 20 mg PO QAM Magnesium Oxide [Mag-Ox] 400 mg PO DAILY valACYclovir [Valtrex] 500 mg PO BID PRN PRN Reason: Cold Sores Acetaminophen [Tylenol Arthritis] 650 mg PO HS Naproxen Sodium [Aleve] 220 mg PO BID Aspirin [Adult Low Dose Aspirin EC] 81 mg PO DAILY Ubidecarenone [Co Q-10] 100 mg PO DAILY Cyanocobalamin/Cobamamide [Vitamin B-12 5,000 Mcg Tab Sl] 1 each SL DAILY Vit C/E/Zn/Coppr/Lutein/Zeaxan [Preservision Areds 2 Softgel] 1 each PO BID Ascorbic Acid [Vitamin C] 2,000 mg PO DAILY Enalapril/Hydrochlorothiazide [Enalapril/Hydrochlorothiazide 10-25 mg Tablet] 0.5 tab PO DAILY Cannabidiol (Cbd) Extract [Epidiolex] 1 dose PO DAILY PRN PRN Reason: Pain Lortab 7.5/325 1 tab PO DAILY PRN PRN Reason: Pain Discharge Medication List traMADol HCL [Ultram] 50 mg PO HS 05/26/17 [History] amLODIPine BESYLATE [Norvasc] 2.5 mg PO W/SUPPER 11/22/18 [History] Cholecalciferol (Vitamin D3) [Vitamin D3] 2,000 unit PO DAILY 05/30/19 [History] Magnesium Oxide [Mag-Ox] 400 mg PO DAILY 05/30/19 [History] Omeprazole [PriLOSEC] 20 mg PO QAM 05/30/19 [History] valACYclovir [Valtrex] 500 mg PO BID PRN 05/30/19 [History] Acetaminophen [Tylenol Arthritis] 650 mg PO HS 12/28/19 [History] Ascorbic Acid [Vitamin C] 2,000 mg PO DAILY 12/28/19 [History] Aspirin [Adult Low Dose Aspirin EC] 81 mg PO DAILY 12/28/19 [History] Cannabidiol (Cbd) Extract [Epidiolex] 1 dose PO DAILY PRN 12/28/19 [History] Cyanocobalamin/Cobamamide [Vitamin B-12 5,000 Mcg Tab Sl] 1 each SL DAILY 12/28/19 [History] Enalapril/Hydrochlorothiazide [Enalapril/Hydrochlorothiazide 10-25 mg Tablet] 0.5 tab PO DAILY 12/28/19 [History] Lortab 7.5/325 1 tab PO DAILY PRN 12/28/19 [History] Naproxen Sodium [Aleve] 220 mg PO BID 12/28/19 [History] Ubidecarenone [Co Q-10] 100 mg PO DAILY 12/28/19 [History] Vit C/E/Zn/Coppr/Lutein/Zeaxan [Preservision Areds 2 Softgel] 1 each PO BID 12/28/19 [History] Aspirin 325 mg PO BID #60 tab 01/03/20 [Rx] HYDROcodone/APAP 7.5-325MG [[place] 7.5-325] 1 - 2 tab PO Q6H PRN #32 tab 01/03/20 [Rx] Sennosides [Senokot] 2 tab PO DAILY PRN #60 tablet 01/03/20 [Rx] Follow up Appointment(s)/Referral(s): Jeremy Jesus DO [Doctor of Osteopathic Medicine] - 2 Weeks Activity/Diet/Wound Care/Special Instructions: Weightbearing as tolerated with walker. Leave dressing intact. Dressing may be removed by home care nurse or by patient in 10 days. May shower with dressing on. Recommend use of compression stockings daily until follow up to help prevent swelling and blood clots. May remove at night before sleeping. Please follow-up with [facility] in 2 weeks and call with any questions or concerns, . Discharge Disposition: HOME WITH HOME HEALTH SERVICES
--- NOTE | 2020-01-03 10:21 | P.PN ---
Subjective Progress Note Date: 01/03/20 feels fine , no cp no sob , no n/v no abd pain . Hip pain is tolerated Objective - Vital Signs Vital signs: Vital Signs Temp 99.0 F 01/03/20 07:00 Pulse 70 01/03/20 07:39 Resp 17 01/03/20 07:39 BP 111/67 01/03/20 07:00 Pulse Ox 93 L 01/03/20 07:00 Intake & Output 01/02/20 01/03/20 01/03/20 18:59 06:59 18:59 Intake Total 550 Output Total 100 Balance 450 Weight 81.1 kg Intake: IV 550 Output: Estimated Blood Loss 100 Other: Voiding Method Toilet Toilet # Voids 1 3 3 - Exam Constitutional: No acute distress, conversant, pleasant Eyes: Anicteric sclerae, moist conjunctiva, no lid-lag, PERRLA ENMT: NC/AT,Oropharynx clear, no erythema, exudates Neck:Supple, FROM, no masses, or JVD Lungs: Clear to auscultation, Clear to percussion, Normal respiratory effort, no accessory muscle use Cardiovascular: Heart regular in rate and rhythm, No murmurs, gallops, or rubs no peripheral edema Abdominal: Soft Nontender, nom distended, no guarding, no rebound or rigidity, Normoactive bowel sounds No hepatomegaly, No splenomegaly, No palpable mass No abdominal wall hernia noted Skin: Normal temperature Extremities:No digital cyanosis No clubbing Psychiatric: Alert and oriented to person, place and time, Appropriate affect Intact judgement Neuro: Muscles Strength 5/5 in all 4 extremities, Sensation to light touch grossly present throughout, Cranial nerves II-XII grossly intact. No focal sensory deficits - Labs CBC & Chem 7: 01/03/20 06:40 Labs: Abnormal Lab Results - Last 24 Hours (Table) 01/03/20 Range/Units 06:40 RBC 3.26 L (3.80-5.40) m/uL Hgb 10.3 L (11.4-16.0) gm/dL Hct 30.0 L (34.0-46.0) % Lymphocytes # 0.9 L (1.0-4.8) k/uL Assessment and Plan Plan: Patient is a 64-year-old female status post direct right anterior hip arthroplasty. Pain management and DVT prophylaxis per orthopedic surgery. Hypertension -controlled -continue home medications Dyslipidemia - diet controlled, outpatient follow-up GERD - PPI medically ok for dc
== END 2020-01-03 11:18 | disposition home health service (06) ==
LOC: OR 05:46 → 4SSUR 08:53 → OR 01-03 11:18
PROVIDERS: ATTEND Orthopaedic Surgery
DX: M16.11 Unilateral primary osteoarthritis, right hip (principal); I10 Essential (primary) hypertension; E78.5 Hyperlipidemia, unspecified; K21.9 Gastro-esophageal reflux disease without esophagitis; K29.70 Gastritis, unspecified, without bleeding; H60.90 Unspecified otitis externa, unspecified ear; H40.9 Unspecified glaucoma; K22.70 Barrett's esophagus without dysplasia; G43.909 Migraine, unspecified, not intractable, without status migrainosus; Z79.82 Long term (current) use of aspirin; Z79.1 Long term (current) use of non-steroidal anti-inflammatories (NSAID); Z79.891 Long term (current) use of opiate analgesic; Z79.899 Other long term (current) drug therapy; Z90.710 Acquired absence of both cervix and uterus; Z90.49 Acquired absence of other specified parts of digestive tract; Z90.89 Acquired absence of other organs; Z98.890 Other specified postprocedural states; Z98.1 Arthrodesis status; Z98.41 Cataract extraction status, right eye; Z98.42 Cataract extraction status, left eye; Z88.8 Allergy status to other drugs, medicaments and biological substances; Z91.09 Other allergy status, other than to drugs and biological substances; Z87.891 Personal history of nicotine dependence; Z80.42 Family history of malignant neoplasm of prostate; Z82.49 Family history of ischemic heart disease and other diseases of the circulatory system; Z83.3 Family history of diabetes mellitus; K44.9 Diaphragmatic hernia without obstruction or gangrene
CPT/HCPCS: 94760; 97116; 97161; 97110; 97535; 97165; 86891; 86900; 86901; 85025; 86850; 88300; 73501 ×2; 27130; C1776; J0171; J2550; J0690 ×2; J2405; J1885; J2795; J0735; J1170 ×2

== ENCOUNTER → 2020-07-23 | Outpatient (CLI) | payer MEDICARE ==
[2020-07-23 10:57] VITALS: BP 152/94; PULSE 68; RESP 18; TEMP 98.4
--- NOTE | 2020-07-23 11:43 | P.HPOB ---
History of Present Illness H&P Date: 07/23/20 Chief Complaint: The patient is here for her routine gynecologic exam and ma mmogram. This is a 64-year-old with an LMP of 1978 who is status post KEYSHAWN for microinvasive cervical cancer. She also has a history of lichen sclerosus of the vulva and continues to have occasional pruritus in the posterior right aspect of the inner labia where it was biopsied years ago. She continues to use clobetasol ointment infrequently when necessary. She is otherwise without gynecologic complaints. Review of Systems Weight has been stable. She denies respiratory, cardiac and G.I. problems. She denies maltreatment or problems with falling. : She has occasional slight leakage when her bladder gets too full and sometimes has to get to the bathroom right away. Past Medical History Past Medical History: Cancer, Eye Disorder, GERD/Reflux, Hyperlipidemia, Hypertension, Osteoarthritis (OA) Additional Past Medical History / Comment(s): degenerative disk disease in neck, hx one migraine, palpitations, heart murmer, hiatal hernia, barretts esophagus, hx narrow angle glaucoma. 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 History of Any Multi-Drug Resistant Organisms: None Reported Past Surgical History: Appendectomy, Back Surgery, Hysterectomy, Orthopedic Surgery, Tonsillectomy Additional Past Surgical History / Comment(s): carpal tunnel-BILAT, D & C, Conization of Cervix,EGD,LT KNEE arthroscopy,BILAT IRIDOTOMY,CERVICAL FUSION X 2 ,CLOSED REDUCTION RT WRIST X 3 CHILD. jose juan cataracts, rt basal joint arthrosplasty rt thumb, lumbar fusion. Colonoscopy with upper endoscopy in 2019. 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 - Past Family History Brother(s) Family Medical History: Cancer Additional Family Medical History / Comment(s): Prostate cancer. Mother Additional Family Medical History / Comment(s): Aortic stenosis. Father Family Medical History: Cancer Additional Family Medical History / Comment(s): Father had prostate cancer. Medications and Allergies Home Medications Medication Instructions Recorded Confirmed Type traMADol HCL [Ultram] 60 mg PO HS 05/26/17 07/23/20 History amLODIPine BESYLATE [Norvasc] 2.5 mg PO W/SUPPER 11/22/18 07/23/20 History Omeprazole [PriLOSEC] 20 mg PO QAM 05/30/19 07/23/20 History valACYclovir [Valtrex] 500 mg PO BID PRN 05/30/19 07/23/20 History Cannabidiol (Cbd) [Epidiolex] 1 dose PO DAILY PRN 12/28/19 07/23/20 History Enalapril/Hydrochlorothiazide 0.5 tab PO DAILY 12/28/19 07/23/20 History [Enalapril/Hydrochlorothiazide 10-25 mg Tablet] Vit C/E/Zn/Coppr/Lutein/Zeaxan 1 each PO BID 12/28/19 07/23/20 History [Preservision Areds 2 Softgel] Allergies Allergy/AdvReac Type Severity Reaction Status Date / Time nickel Allergy Unknown Rash/Hives Verified 07/23/20 10:46 methylprednisolone AdvReac sleeplessne Verified 07/23/20 10:46 [From Depo-Medrol] ss,active Exam Vital Signs Temp Pulse Resp BP Pulse Ox 07/23/20 10:51 98.4 F 68 18 152/94 97 Intake and Output 07/22/20 07/23/20 07/23/20 22:59 06:59 14:59 Other: Weight 78.471 kg Height 5 feet 6 inches, weight 173 pounds, BMI 27.9. This is a well-developed well-nourished white female who is alert and oriented times 3 in no acute distress. HEENT: Within normal limits. NECK: Supple without mass or thyromegaly. CHEST AND LUNGS: Clear to auscultation. HEART: Regular rate and rhythm. BREASTS: Are without mass or discharge. AXILLARY EXAM: Negative for adenopathy. BACK: Negative for CVA tenderness. ABDOMEN: Soft, nontender, without palpable masses. PELVIC EXAM: External genitalia has mild atrophy with minimal pallor. 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 This area appears benign and minimally inflamed. Vagina appears normal with mild atrophy. There is no evidence of prolapse. Bimanual examination is negative for mass or tenderness. RECTAL EXAM: Rectovaginal exam is negative for mass or tenderness and is negative for occult blood. EXTREMITIES: Nontender. IMPRESSION: 1. 64-year-old menopausal female status post KEYSHAWN for microinvasive cervical cancer in 1978. 2. History of lichen sclerosus of the vulva which is intermittently mildly symptomatic especially at the area where was biopsied in 2003. This appears benign. 3. Doing well with Premarin vaginal cream. She does state the cost is very high. PLAN: 1. Pap smear of the vaginal cuff was performed. We will continue to do this yearly because of her history of microinvasive cervical cancer in the past. 2. Self breast awareness was discussed with the patient. 3. Screening mammogram will be done today. 4. Osteoporosis prevention was discussed. I have stressed the importance of adequate calcium, vitamin D and regular exercise. Recommended amounts of calcium and vitamin D were also discussed. Bone density testing will be done today. 5. We have discussed her elevated blood pressure. I have recommended that she check her own blood pressure at home on a regular basis since she does have a blood pressure cuff. She will follow up with her PCP for blood pressure elev ations. 6. We will try Vagifem 10 g into the vagina [address] of the Premarin vaginal cream to see if this will be less expensive than the Premarin vaginal cream. The electronic prescription will be sent to [facility] pharmacy on [facility]. 7. She will continue to use clobetasol ointment when necessary. She has used this in frequently and still has this medication at home. 8. She was advised to return in one year for her annual well woman exam.
--- NOTE | 2020-07-23 14:35 | BD ---
EXAMINATION TYPE: Axial Bone Density DATE OF EXAM: 07/23/2020 COMPARISON: NONE CLINICAL HISTORY: Height: 65.5 IN Weight: 182 LBS FRAX RISK QUESTIONS: History of Fracture in Adulthood: THUMB FX AGE Secondary Osteoporosis: 3. Menopause before 45: PARTIAL HYST AGE 23 RISK FACTORS HISTORY OF: History of Wrist Fracture: RT WRIST FX AGE 6 Surgery to Spine/Hip(right): L-SPINE FUSION AGE 62; HIP AGE 64 Active: YES Postmenopausal woman: PARTIAL HYST AGE 23 MEDICATIONS: Additional Medications: VIT D, ENALAPRIL, PRILOSEC, AMLODIPINE, TRAMADOL, PRESERVISION, VIT C, MAGNES IUM, B12, COQ10, LOW DOSE ASPIRIN EXAM MEASUREMENTS: Bone mineral densitometry was performed using the Dopplr System. L-SPINE FUSION AGE 62 RT HIP REPLACEMENT AGE 64 Bone mineral density about the L hip (g/cm2): 0.973 T Score values are as follows: -----L Neck: -0.5 -----L Total: 0.2 Bone mineral density has: Decreased -8.9% since study of: 06/04/2005 Bone mineral density about the L Wrist (g/cm2): 0.551 T Score values are as follows: -----Dist. R+U: -1.7 -----Prox. R+U: -1.3 -----Radius total: -2.0 Bone mineral density BASELINE IMPRESSION: Osteopenia NOTE: T-SCORE=SD OF THE YOUNG ADULT MEAN.
--- NOTE | 2020-07-24 10:42 | MM ---
Reason for exam: screening (asymptomatic). Last mammogram was performed 1 year and 8 months ago. History: Patient is postmenopausal and has history of endometrial cancer at age 23. Family history of breast cancer in paternal aunt at age 74. Took estrogen for 1 year. Physical Findings: A clinical breast exam by your physician is recommended on an annual basis and results should be correlated with mammographic findings. MG 3D Screening Mammo W/Cad Bilateral CC and MLO view(s) were taken. Prior study comparison: November 22, 2018, bilateral MG 3d screening mammo w/cad. May 26, 2017, bilateral MG screening mammo w CAD. There are scattered fibroglandular densities. There is no discrete abnormality. No significant changes when compared with prior studies. ASSESSMENT: Negative, BI-RAD 1 RECOMMENDATION: Routine screening mammogram of both breasts in 1 year.
== END | disposition home or self-care (01) ==
LOC: WWCWWP 10:33
PROVIDERS: ATTEND Obstetrics & Gynecology
DX: Z12.31 Encounter for screening mammogram for malignant neoplasm of breast (principal); M85.80 Other specified disorders of bone density and structure, unspecified site; Z78.0 Asymptomatic menopausal state
CPT/HCPCS: 77063; 77067; 77080

== ENCOUNTER → 2020-11-28 | Outpatient (CLI) | payer MEDICARE ==
--- NOTE | 2020-11-29 18:35 | ECHOF ---
Referral Reason:R01.1 cardiac murmur MEASUREMENTS -------- HEIGHT: 165.1 cm WEIGHT: 80.7 kg BP: RVIDd: 2.9 cm (< 3.3) IVSd: 1.1 cm (0.6 - 1.1) LVIDd: 3.8 cm (3.9 - 5.3) LVPWd: 1.1 cm (0.6 - 1.1) IVSs: 1.3 cm LVIDs: 3.0 cm LVPWs: 1.5 cm LA Diam: 3.3 cm (2.7 - 3.8) LAESV Index (A-L): 17.08 ml/m Ao Diam: 2.7 cm (2.0 - 3.7) AV Cusp: 1.2 cm (1.5 - 2.6) MV EXCURSION: 14.230 mm (> 18.000) MV EF SLOPE: 95 mm/s (70 - 150) EPSS: 0.5 cm MV E Teodoro: 0.60 m/s MV DecT: 309 ms MV A Teodoro: 0.81 m/s MV E/A Ratio: 0.74 RAP: 5.00 mmHg RVSP: 27.55 mmHg FINDINGS -------- Sinus rhythm. This was a technically good study. LV size, wall thickness and systolic function are normal, with an EF greater than 55%. The left corine tricular size is normal. The right ventricle is normal in size. Normal LA size by volume 22+/-6 ml/m2. The right atrial size is normal. There is mild aortic valve sclerosis. There is no evidence of aortic regurgitation. Mild mitral regurgitation is present. Mild tricuspid regurgitation present. Right ventricular systolic pressure is normal at < 35 mmHg. There is no pulmonic regurgitation present. The aortic root size is normal. There is no pericardial effusion. CONCLUSIONS -------- 1. LV size, wall thickness and systolic function are normal, with an EF greater than 55%. 2. The left ventricular size is normal. 3. The right ventricle is normal in size. 4. Normal LA size by volume 22+/-6 ml/m2. 5. The right atrial size is normal. 6. There is mild aortic valve sclerosis. 7. Mild mitral regurgitation is present. 8. Mild tricuspid regurgitation present. 9. The aortic root size is normal. 10. There is no pericardial effusion. [employer] SECURITY: Stefania Roberts RDCS
== END | disposition home or self-care (01) ==
LOC: RADECHMAIN 12:11
PROVIDERS: ATTEND Family Medicine
DX: I08.3 Combined rheumatic disorders of mitral, aortic and tricuspid valves (principal)
CPT/HCPCS: 93306

== ENCOUNTER 2021-03-14 13:32 | Emergency (ER) | payer MEDICARE ==
[2021-03-14 13:41] VITALS: BP 186/101; PULSE 64; RESP 20; TEMP 98.3
--- NOTE | 2021-03-14 14:51 | CT ---
EXAMINATION TYPE: CT brain nicholas lara DATE OF EXAM: 03/14/2021 COMPARISON: None HISTORY: Fall/head injury CT DLP: 1492.[address] of the brain was performed. The ventricles, basal cisterns and sulci overlying the cerebral convexities demonstrate mild enlargem ent. There is no evidence for intracranial hemorrhage or sulcal effacement. There is decreased attenuatio n about the periventricular white matter and deep white matter of both cerebral hemispheres, compatib le with chronic small vessel ischemia. No mass effects are seen. If symptoms persist consider MRI. Osseous calvarium is intact. Large frontal scalp hematoma. IMPRESSION: 1. Age related atrophic and chronic small vessel ischemic change without acute intracranial process seen at this time. CT Cervical Spine: Unenhanced CT of the cervical spine was performed with bone and soft tissue window settings submitted . Coronal and sagittal reconstruction is obtained. There is normal alignment and prevertebral soft tissues. No evidence for acute cervical fracture . P ostoperative changes of fusion C5-C7. Scattered degenerative disc disease and spondylosis. Biapical s carring. IMPRESSION: 1. No evidence for acute fracture or subluxation of the cervical spine.
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
[2021-03-14] MEDS ORDERED: HYDROcodone/APAP 5-325MG 1 EACH TAB PO STA (15:43)
== END 2021-03-14 14:05 | disposition home or self-care (01) ==
LOC: EC 13:32
DX: S00.03XA Contusion of scalp, initial encounter (principal); S09.90XA Unspecified injury of head, initial encounter; I10 Essential (primary) hypertension; K21.9 Gastro-esophageal reflux disease without esophagitis; I48.91 Unspecified atrial fibrillation; M19.90 Unspecified osteoarthritis, unspecified site; E78.5 Hyperlipidemia, unspecified; Z88.8 Allergy status to other drugs, medicaments and biological substances; Z91.048 Other nonmedicinal substance allergy status; Z79.899 Other long term (current) drug therapy; Z79.01 Long term (current) use of anticoagulants; Z79.891 Long term (current) use of opiate analgesic; W01.10XA Fall on same level from slipping, tripping and stumbling with subsequent striking against unspecified object, initial encounter; Y92.89 Other specified places as the place of occurrence of the external cause
CPT/HCPCS: 70450; 72125; 99283

== ENCOUNTER 2021-12-09 08:28 | Day surgery (SDC) | payer MEDICARE ==
[2021-12-05 14:31] VITALS: BMI 27.6
[~2021-12-09 08:28] MED LIST changes: -ACETAMINOPHEN TAB 500 MG TAB PO ONE; -GABAPENTIN 300 MG CAP PO ONE; -HYDROmorphone 0.5 MG/0.5 ML SYRINGE IVP PRN; +LACTATED RINGERS 1,000 ML IV SCH; +LIDOCAINE 1% (10MG/ML) FOR IV START INTRADERMA PRN; -MELOXICAM 7.5 MG TAB PO ONE; -MIDAZOLAM 2 MG/2 ML VIAL IV PRN; -TRANEXAMIC ACID 1,000 MG in SODIUM CHLORIDE 0.9% 100 ML IVPB ONE
[2021-12-09 08:54] VITALS: TEMP 97.7
[2021-12-09] MEDS ORDERED: PROPOFOL 10 MG/ML 20 ML VIAL IV ONE (09:23)
--- NOTE | 2021-12-09 09:27 | P.GSHP ---
History of Present Illness H&P Date: 12/09/21 Chief Complaint: GERD, Oshea's 66-year-old female here today for upper endoscopy. Patient with history of Oshea's esophagus. Last EGD 3 years ago. Last colonoscopy 3 years ago as well. No dysphagia. She takes daily antiacids. Despite that still has GERD symptoms at times. Past Medical History Past Medical History: Atrial Fibrillation, Cancer, Eye Disorder, GERD/Reflux, Hyperlipidemia, Hypertension, Osteoarthritis (OA) Additional Past Medical History / Comment(s): degenerative disk disease in neck, hx one migraine, palpitations, heart murmer, hiatal hernia, barretts esophagus, hx narrow angle glaucoma-resolvec, Hx Cervical Ca-1978, genital HSV in 2011 and history of lichen sclerosis in 2003. wears brace on left knee History of Any Multi-Drug Resistant Organisms: None Reported Past Surgical History: Appendectomy, Back Surgery, Hysterectomy, Joint Replacement, Orthopedic Surgery, Tonsillectomy Additional Past Surgical History / Comment(s): carpal tunnel-BILAT, D & C, Conization of Cervix,EGD,LT KNEE arthroscopy,BILAT IRIDOTOMY,CERVICAL FUSION X 2 ,CLOSED REDUCTION RT WRIST X 3 CHILD. jose juan cataracts, rt basal joint arthrosplasty rt thumb, lumbar fusion. Colonoscopy with upper endoscopy in 2019. rt hip replacement Past Anesthesia/Blood Transfusion Reactions: Postoperative Nausea & Vomiting (PONV) Additional Past Anesthesia/Blood Transfusion Reaction / Comment(s): had nausea/gagging with lumbar fusion surgery Smoking Status: Former smoker - Past Family History Brother(s) Family Medical History: Cancer Additional Family Medical History / Comment(s): Prostate cancer. Mother Additional Family Medical History / Comment(s): Aortic stenosis. Father Family Medical History: Cancer Additional Family Medical History / Comment(s): Father had prostate cancer. Medications and Allergies Home Medications Medication Instructions Recorded Confirmed Type traMADol HCL [Ultram] 50 mg PO HS 05/26/17 12/05/21 History amLODIPine BESYLATE [Norvasc] 5 mg PO BID 11/22/18 12/05/21 History Omeprazole [PriLOSEC] 20 mg PO QAM 05/30/19 12/05/21 History valACYclovir HCL [Valtrex] 500 mg PO BID PRN 05/30/19 12/05/21 History Vit C/E/Zn/Coppr/Lutein/Zeaxan 1 each PO BID 12/28/19 12/05/21 History [Preservision Areds 2 Softgel] estradioL [Vagifem] 10 mcg VG DIRECTED #24 tablet 07/23/20 12/05/21 Rx HYDROcodone/APAP 5-325MG [[place] 1 tab PO Q6H PRN 2 Days #5 tab 03/14/21 12/05/21 Rx 5-325] Acetaminophen [Tylenol Arthritis] 650 mg PO BID 12/05/21 12/05/21 History Losartan/Hydrochlorothiazide 1 each PO QAM 12/05/21 12/05/21 History [Losartan-Hctz 50-12.5 mg Tab] Pramipexole [Mirapex] 0.125 mg PO HS 12/05/21 12/05/21 History Rivaroxaban [Xarelto] 20 mg PO W/SUPPER 12/05/21 12/05/21 History Allergies Allergy/AdvReac Type Severity Reaction Status Date / Time nickel Allergy Unknown Rash/Hives Verified 12/09/21 08:50 methylprednisolone AdvReac sleeplessne Verified 12/09/21 08:50 [From Depo-Medrol] ss,active Surgical - Exam Vital Signs Temp Pulse Resp BP Pulse Ox 97.7 F 72 18 164/84 98 12/09/21 08:49 12/09/21 08:49 12/09/21 08:49 12/09/21 08:49 12/09/21 08:49 Physical exam: General: Well-developed, well-nourished HEENT: Normocephalic, sclerae nonicteric Abdomen: Nontender, nondistended Extremities: No edema Neuro: Alert and oriented Assessment and Plan (1) GERD (gastroesophageal reflux disease) Narrative/Plan: Will proceed with upper endoscopy Current Visit: Yes Status: Acute Code(s): K21.9 - GASTRO-ESOPHAGEAL REFLUX DISEASE WITHOUT ESOPHAGITIS SNOMED Code(s): 826928132
--- NOTE | 2021-12-09 09:37 | P.PCN ---
Date of Procedure: 12/09/21 Procedure(s) Performed: Preoperative Dx: GERD, history of Oshea's esophagus Postoperative Dx: Short segment Oshea's esophagus, mild gastritis Procedure: EGD with Bx Anesthesia: Sedation Endoscopist: Dr. London Specimens: Distal esophagus, antrum Endoscopic Procedure: The patient was on the endoscopy table in the left decubitus position. The Olympus gastroscope was inserted into the oropharynx and passed under direct visualization to the region of the third portion of the duodenum. From that point the scope was slowly withdrawn inspecting all surfaces carefully. There were no neoplastic inflammatory or polypoid lesions throughout the duodenum. The pylorus was widely patent. The stomach was carefully inspected. There was minimal gastritis present. A biopsy of the antrum took place to rule out H. pylori. Retroflexion revealed a normal hiatus. The esophagus was then carefully examined. There was noted to be a short segment approximately 1 cm of salmon-colored mucosa above the GE junction. Biopsies were taken. No inflammatory changes or erosions were present. The remainder the esophagus appear normal. The patient was then taken to the recovery room in stable condition per anesthesia guidelines. Recommendations: Await biopsy results. Continue antiacid therapy.
[2021-12-09 09:45] VITALS: RESP 16
[2021-12-09 09:53] VITALS: BP 134/79; PULSE 64
== END 2021-12-09 10:28 | disposition home or self-care (01) ==
LOC: ORWHC2ENDO 08:28
PROVIDERS: ATTEND Surgery
DX: K22.70 Barrett's esophagus without dysplasia (principal); K21.9 Gastro-esophageal reflux disease without esophagitis; K29.50 Unspecified chronic gastritis without bleeding; I48.91 Unspecified atrial fibrillation; E78.5 Hyperlipidemia, unspecified; I10 Essential (primary) hypertension; M19.90 Unspecified osteoarthritis, unspecified site; M50.33 Other cervical disc degeneration, cervicothoracic region; R00.2 Palpitations; Z86.69 Personal history of other diseases of the nervous system and sense organs; R01.1 Cardiac murmur, unspecified; Z85.41 Personal history of malignant neoplasm of cervix uteri; Z90.49 Acquired absence of other specified parts of digestive tract; Z90.710 Acquired absence of both cervix and uterus; Z98.890 Other specified postprocedural states; Z96.641 Presence of right artificial hip joint; Z98.1 Arthrodesis status; Z98.42 Cataract extraction status, left eye; Z98.41 Cataract extraction status, right eye; Z87.891 Personal history of nicotine dependence; Z82.49 Family history of ischemic heart disease and other diseases of the circulatory system; Z80.42 Family history of malignant neoplasm of prostate; Z79.01 Long term (current) use of anticoagulants; Z79.891 Long term (current) use of opiate analgesic; Z79.899 Other long term (current) drug therapy; Z88.8 Allergy status to other drugs, medicaments and biological substances; Z91.09 Other allergy status, other than to drugs and biological substances
CPT/HCPCS: 88305; 88342; 43239; J2704

== ENCOUNTER → 2022-01-06 | Outpatient (CLI) | payer MEDICARE ==
[2022-01-06 12:47] VITALS: BP 135/85; PULSE 71; RESP 17; TEMP 98.4
--- NOTE | 2022-01-06 13:26 | P.HPOB ---
History of Present Illness H&P Date: 01/06/22 Chief Complaint: The patient is here for her routine gynecologic exam and ma mmogram. This is a 66-year-old with an LMP of 1978. She is status post [facility] for microinvasive cervical cancer. She has a history of lichen sclerosis of the vulva and continues to have occasional vulvar pruritus and infrequently needs to use clobetasol ointment. She is very happy with the Yuvafem vaginal tablet instead of the estrogen cream. She is otherwise without gynecologic complaints. Review of Systems The patient has gained 9 pounds over the last year. She denies respiratory, cardiac, or G.I. problems. Past Medical History Past Medical History: Atrial Fibrillation, Cancer, Eye Disorder, GERD/Reflux, Hyperlipidemia, Hypertension, Osteoarthritis (OA) Additional Past Medical History / Comment(s): degenerative disk disease in neck, hx one migraine, palpitations, heart murmer, hiatal hernia, barretts esophagus, hx narrow angle glaucoma-resolvec, osteopenia. 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 History of Any Multi-Drug Resistant Organisms: None Reported Past Surgical History: Appendectomy, Back Surgery, Hysterectomy, Joint Replacement, Orthopedic Surgery, Tonsillectomy Additional Past Surgical History / Comment(s): carpal tunnel-BILAT, D & C, Dee Dee zation of Cervix,EGD,LT KNEE arthroscopy,BILAT IRIDOTOMY,CERVICAL FUSION X 2 ,CLOSED REDUCTION RT WRIST X 3 CHILD. jose juan cataracts, rt basal joint arthrosplasty rt thumb, lumbar fusion. Colonoscopy with upper endoscopy in 2019. rt hip replacement. Upper endoscopy 2021. 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 - Past Family History Brother(s) Family Medical History: Cancer Additional Family Medical History / Comment(s): Prostate cancer. Mother Family Medical History: Osteoarthritis (OA) Additional Family Medical History / Comment(s): Aortic stenosis. Father Family Medical History: Cancer Additional Family Medical History / Comment(s): Father had prostate cancer. Medications and Allergies Home Medications Medication Instructions Recorded Confirmed Type traMADol HCL [Ultram] 50 mg PO HS 05/26/17 01/06/22 History amLODIPine BESYLATE [Norvasc] 5 mg PO BID 11/22/18 01/06/22 History Omeprazole [PriLOSEC] 20 mg PO QAM 05/30/19 01/06/22 History valACYclovir HCL [Valtrex] 500 mg PO BID PRN 05/30/19 01/06/22 History Vit C/E/Zn/Coppr/Lutein/Zeaxan 1 each PO BID 12/28/19 01/06/22 History [Preservision Areds 2 Softgel] estradioL [Vagifem] 10 mcg VG DIRECTED #24 tablet 07/23/20 01/06/22 Rx HYDROcodone/APAP 5-325MG [[place] 1 tab PO Q6H PRN 2 Days #5 tab 03/14/21 01/06/22 Rx 5-325] Acetaminophen [Tylenol Arthritis] 650 mg PO BID 12/05/21 01/06/22 History Losartan/Hydrochlorothiazide 1 each PO QAM 12/05/21 01/06/22 History [Losartan-Hctz 50-12.5 mg Tab] Pramipexole [Mirapex] 0.125 mg PO HS 12/05/21 01/06/22 History Rivaroxaban [Xarelto] 20 mg PO W/SUPPER 12/05/21 01/06/22 History Allergies Allergy/AdvReac Type Severity Reaction Status Date / Time nickel Allergy Unknown Rash/Hives Verified 01/06/22 12:43 methylprednisolone AdvReac sleeplessne Verified 01/06/22 12:43 [From Depo-Medrol] ss,active Exam Vital Signs Temp Pulse Resp BP Pulse Ox 01/06/22 12:43 98.4 F 71 17 135/85 98 Intake and Output 01/05/22 01/06/22 01/06/22 22:59 06:59 14:59 Other: Weight 82.554 kg Height 5 feet 7 inches, weight 182 pounds, BMI 28.5. This is a well-developed well-nourished white female who is alert and oriented times 3 in no acute distress. HEENT: Within normal limits. NECK: Supple without mass or thyromegaly. CHEST AND LUNGS: Clear to auscultation. HEART: Regular rate and rhythm. BREASTS: Are without mass or discharge. AXILLARY EXAM: Negative for adenopathy. BACK: Negative for CVA tenderness. ABDOMEN: Soft, nontender, without palpable masses. PELVIC EXAM: External genitalia appears normal with mild atrophy. Vagina appears normal with mild atrophy. There is no evidence of prolapse. Bimanual examination is negative for mass or tenderness. RECTAL EXAM: Rectovaginal exam is negative for mass or tenderness and is negative for occult blood. EXTREMITIES: Nontender. IMPRESSION: 1. 66-year-old menopausal female status post [facility] in 1978 for microinvasive cervical cancer. No evidence of recurrence on exam. 2. History of lichen sclerosus of the vulva needing Temovate ointment inf requently. 3. History of osteopenia. PLAN: 1. Pap smear of the vaginal cuff was performed because of her history of cervical cancer. She will continue to have this done yearly. 2. Self breast awareness was discussed with the patient. We have also discussed symptoms associated with inflammatory breast cancer. 3. Screening mammogram will be done today. 4. Prescriptions for Temovate ointment and Yuvafem vaginal tablets will be sent electronically to [facility] on [facility]. 5. Osteoporosis prevention was discussed. I have stressed the importance of adequate calcium, vitamin D and regular exercise. Recommended amounts of calcium and vitamin D were also discussed. We will plan on repeating bone density testing next year. Her last one was done on 07/23/2020. 6. She has completed her Covid vaccination series and did receive a booster. 7. She was advised to return in one year for her annual well woman exam.
--- NOTE | 2022-01-07 12:28 | MM ---
Reason for Exam: Screening (asymptomatic). Last mammogram was performed 1 year(s) and 5 month(s) ago. Patient History: Menarche at age 11. First Full-Term at age 16. Hysterectomy at age 23. Postmenopausal. Endometrial cancer, age 23. Patient used Estrogen for 1 year. Paternal aunt had breast cancer, age 74. Risk Values: Roselyn 5 year model risk: 1.2%. NCI Lifetime model risk: 4.0%. Prior Study Comparison: 05/26/2017 Bilateral Screening Mammogram, [facility]. 11/22/2018 Bilateral Screening Mammogram, [facility]. 07/23/2020 Bilateral Screening Mammogram, [facility]. Tissue Density: The breast tissue is almost entirely fat. Findings: Analyzed By CAD. There is no suspicious group of microcalcifications or new suspicious mass in either breast. Overall Assessment: Benign, BI-RAD 2 Management: Screening Mammogram of both breasts in 1 year. A clinical breast exam by your physician is recommended on an annual basis and results should be correlated with mammographic findings. Electronically signed and approved by: Sarath Mark M.D. Radiologis
== END ==
LOC: WWCWWP 12:38
PROVIDERS: ATTEND Obstetrics & Gynecology
DX: Z12.31 Encounter for screening mammogram for malignant neoplasm of breast (principal); Z01.419 Encounter for gynecological examination (general) (routine) without abnormal findings; I48.91 Unspecified atrial fibrillation; E78.5 Hyperlipidemia, unspecified; I10 Essential (primary) hypertension; M19.90 Unspecified osteoarthritis, unspecified site; G43.909 Migraine, unspecified, not intractable, without status migrainosus; Z87.891 Personal history of nicotine dependence; K21.9 Gastro-esophageal reflux disease without esophagitis; Z79.899 Other long term (current) drug therapy; Z78.0 Asymptomatic menopausal state; Z85.41 Personal history of malignant neoplasm of cervix uteri; Z87.39 Personal history of other diseases of the musculoskeletal system and connective tissue; Z90.710 Acquired absence of both cervix and uterus; Z88.9 Allergy status to unspecified drugs, medicaments and biological substances; Z88.8 Allergy status to other drugs, medicaments and biological substances
CPT/HCPCS: 77063; 77067

== ENCOUNTER 2022-11-03 05:34 | Day surgery (SDC) | payer MEDICARE ==
[~2022-11-03 05:34] MED LIST changes: +ACETAMINOPHEN TAB 500 MG TAB PO PRN; +GABAPENTIN 300 MG CAP PO PRN; -LACTATED RINGERS 1,000 ML IV SCH; +MELOXICAM 7.5 MG TAB PO PRN; +MIDAZOLAM 2 MG/2 ML VIAL IV PRN; +ONDANSETRON 4 MG/2 ML VIAL IVP ONE; +TRANEXAMIC ACID IN NACL,ISO-OS 1,000 MG in SALINE 1 100ML.BAG IVPB PRN
[2022-11-03] MEDS: LACTATED RINGERS 1,000 ML IV SCH (06:15)
[2022-11-03] MEDS ORDERED: DEXAMETHASONE SOD PHOSPHATE 4 MG/ML 1 ML VIAL IVP ONE (06:18)
[2022-11-03] MEDS ORDERED: fentaNYL (PF) 50 MCG/1 ML VIAL IVP ONE (06:29)
[2022-11-03] MEDS ORDERED: MIDAZOLAM 2 MG/2 ML VIAL IVP ONE (06:29)
[2022-11-03] MEDS ORDERED: PROPOFOL 10 MG/ML 20 ML VIAL IV ONE (06:55)
[2022-11-03] MEDS ORDERED: MIDAZOLAM 2 MG/2 ML VIAL ONE (06:55)
[2022-11-03] MEDS ORDERED: fentaNYL (PF) 50 MCG/ML 2 ML AMP ONE (06:55)
[2022-11-03] MEDS ORDERED: ROPIVACAINE 5 MG/ML 30 ML VIAL ONE (06:55)
[2022-11-03] MEDS ORDERED: NALOXONE 0.4 MG/ML 1 ML VIAL IV PRN (07:03)
[2022-11-03] MEDS ORDERED: ONDANSETRON 4 MG/2 ML VIAL IVP PRN (07:03)
[2022-11-03] MEDS ORDERED: HYDROmorphone 0.5 MG/0.5 ML SYRINGE IVP PRN ×2 (07:03)
[2022-11-03] MEDS ORDERED: MAGNESIUM HYDROXIDE 2,400 MG/10 ML CUP PO PRN (07:03)
[2022-11-03] MEDS ORDERED: HYDROcodone/APAP 7.5-325MG 1 EACH TAB PO PRN (07:06)
[2022-11-03] MEDS ORDERED: ceFAZolin 1,000 MG in SODIUM CHLORIDE 0.9% 1,000 ML IRRIGATION ONE (07:24)
[2022-11-03] MEDS ORDERED: ROPIVACAINE 1,100 MG, SODIUM CHLORIDE 0.9% 500 ML 330 ML, EMPTY PAIN BALL 1 EACH MISCELLANE PRN ×2 (08:04)
--- NOTE | 2022-11-03 08:07 | P.ANPRN ---
Procedure Note - Anesthesia - Nerve Block Performed Left Adductor Canal Time Out Performed: Yes (:) Date of Procedure: 11/03/22 Procedure Start Time: Procedure Stop Time: Location of Patient: PreOp Indication: Acute Post-Operative Pain, Requested by Surgeon (Dr Jeremy Jesus) Sedation Type: Sedate with meaningful contact maintained Preparation: Sterile Prep, Sterile Dressing Position: Supine Catheter: Indwelling Needle Types: Pajunk Needle Gauge: 21 Ultrasound used to visualize needle placement: Yes Ultrasound used to observe medication spread: Yes Injectate: 0.5% Ropivacaine (see comment for volume) (20cc) Blood Aspirated: No Pain Paresthesia on Injection Noted: No Resistance on Injection: Normal Image Stored and Saved: Yes Events: Uneventful and Well Tolerated
--- NOTE | 2022-11-03 08:08 | P.ANPRN ---
Procedure Note - Anesthesia - Nerve Block Performed Left iPack Time Out Performed: Yes Date of Procedure: 11/03/22 Procedure Start Time: 06:38 Procedure Stop Time: 06:43 Location of Patient: PreOp Indication: Acute Post-Operative Pain, Requested by Surgeon (Dr Jeremy Jesus) Sedation Type: Sedate with meaningful contact maintained Preparation: Sterile Prep Position: Supine Catheter: None Needle Types: Pajunk Needle Gauge: 21 Ultrasound used to visualize needle placement: Yes Ultrasound used to observe medication spread: Yes Injectate: 0.5% Ropivacaine (see comment for volume) (15cc + 5cc PF Normal saline) Blood Aspirated: No Pain Paresthesia on Injection Noted: No Resistance on Injection: Normal Image Stored and Saved: Yes Events: Uneventful and Well Tolerated
--- NOTE | 2022-11-03 08:10 | P.OP ---
Date of Procedure: 11/03/22 Preoperative Diagnosis: Severe Osteoarthritis left knee Postoperative Diagnosis: Severe osteoarthritis left knee Procedure(s) Performed: Left total knee arthroplasty Implants: Elliott [employer] Nephew Journey II CR Oxinium cruciate retaining femoral component size 5, left [employer]hew Journey nonporous tibial baseplate size 3, left [employer] Journey II, XLPE Deep Dished articular insert, size 10 mm, Size 3-4, left [employer] Journey Shanell II resurfacing patellar component, oval, 29 mm All components were cemented using Palacos R bone cement The articulation is Oxinium on polyethylene Anesthesia: spinal Surgeon: Jeremy Jesus Snow Removal Supervisor #1: Cristina Gonzalez Estimated Blood Loss (ml): 30 Pathology: other (Bone and cartilage) Condition: stable Disposition: PACU Indications for Procedure: The patient's knee is end-stage, and conservative management has failed. The operation of knee replacement has been discussed at length in the office, as well as potential risks and complications. These are inclusive of, but not limited to: Infection, bleeding, scarring, discomfort, stiffness, blood vessel and nerve damage, need for further surgery, failure to relieve symptoms, persistence, recurrence, or worsening of problems, loosening, dislocation, wear, blood clot, pulmonary embolism, , gait dysfunction, stiffness, and other risks as discussed in the office. Patient elects to proceed and the consent form has been signed. Operative Findings: The operative findings are consistent with severe osteoarthritis of the left knee Description of Procedure: The patient was seen in the preoperative area, the consent was reviewed and the operative site was marked with a skin marker. The patient verified the procedure and the operative site. An adductor canal pain catheter and an iPACK block were placed by anesthesia in the preoperative area. The patient was then brought to the operating room and positioned on the operating room table in the supine position. Preoperative antibiotics and a gram of tranexamic acid were given intravenously. A spinal anesthetic was administered by the anesthesia department. Care was taken to make sure that all pressure points were adequately padded. A tourniquet was placed on the upper thigh and the lower extremity was prepped with ChloraPrep and draped in usual sterile fashion. A universal time-out was then performed which confirmed the patient's name, surgical site, ALLERGIES, and consent. The lower extremity was then exsanguinated and tourniquet was inflated to 250 mmHg. A standard anterior midline approach to the knee was performed. The skin and subcutaneous tissue were sharply dissected down to the patellar tendon. A medial parapatellar arthrotomy was then performed. The knee was then extended, the patellar was everted, and the knee was flexed. The infra-patellar fat pad was removed in order to enhance exposure. The anterior horns of both menisci were excised, and a release was performed to the posterior medial aspect of the knee. On gross visual inspection, there was complete loss of articular cartilage in the medial and patellofemoral joint spaces. There was also sig nificant cartilage damage in the lateral compartment. There were multiple periarticular osteophytes globally about the knee which were then removed with a Ronguer. The femoral canal was then opened with the 9.5 mm intramedullary drill. The 8 mm intramedullary tram was then inserted into the femoral canal with the distal femoral cutting guide set for 5 of valgus. The distal femoral cutting block was then pinned in place. The intramedullary tram was then removed, and the distal femur was then cut. The cutting block was then removed and the cut was checked for symmetry. The resected bone was then measured to confirm the appropriate distal femoral resection. Next, the sizing guide was then placed and set for 3 external rotation based off of the epicondylar axis and Ervin's line. Pins were then placed and the drill holes, and the femur was sized with the sizing stylus. The pins were then removed, and the sizing guide was then removed. The spikes of the appropriate size femoral block was then placed into the predrilled holes, and malleted into place. Two 45 mm pins were then placed into the fixation holes on the cutting block. An liv wing was then used to ensure there would be no notching with the anterior cut. The anterior condyles were cut without notching. The anterior chord cut was then performed, followed by the posterior cut, posterior chamfer cut, and the anterior chamfer cut. The collateral ligaments were protected during the entire process. The cutting block was then removed. Any remaining bone and osteophytes were removed from the femur with a Ronguer. Attention was then directed to the tibia. The remaining ACL was removed with a Ronguer, and the tibia was then gently subluxed forward with a large bent knee retractor. Any remaining menisci were excised. The posterior lateral corner was cauterized in order to coagulate the lateral geniculate artery. The extra medullary tibial cutting guide was then placed, set for the appropriate rota tion, slope, and depth of resection. The proximal tibia cutting guide was then pinned in place. Proximal tibia was then cut and sized. A curved osteotome was then used to remove any posterior osteophytes from the distal femur. The femoral trial was placed. A narrow saw blade was then used to remove the anterior intracondylar femoral bone. The CR notch trial was then placed. The tibial trial was placed with the appropriate-sized insert. The knee was able to fully extend and flex to 130 and was stable throughout all range of motion. The knee was then extended and the patella was everted. Patella was then measured, and then using an osteotomy guide, the patella was cut at the appropriate level. The patellar component was sized. The patellar drill guide was placed and the patella was drilled. The patella trial was then placed. The knee was then taken through range of motion with the patella trial and the patella tracked normally using the no thumbs technique. The patella trial was then removed. The knee was then flexed and lug holes were drilled through the femoral trial and the femoral trial was then removed. The tibial was then re- exposed, and the tibial broach guide was then pinned in place after it was set for the appropriate rotation to allow for the most coverage without overhang. The tibia was then reamed and broached. The femoral canal was plugged with autologous bone. The cut surfaces of bone were then irrigated with pulsatile lavage. The knee was also irrigated with Irrisept solution. The components were then opened, the cement was mixed. Cement was placed on the backside of the femoral, tibial, and patellar components. Cement was then applied to the tibial surface and pressurized into the surface using finger pressurization technique. The tibial component was then applied and excess cement was removed after it was impacted securely noted to be flush with the cut surface. In similar fashion, the cement was applied to the cut femoral surface, pressurized and using finger pressurization the component was impacted in place. Excess cement was removed. The polyethylene spacer was then implanted and locked into position. Patellar component was then applied in a similar technique and the patellar clamp was used to hold patella in place while the cement hardened. The knee was held in full extension while the cement hardened. Once the cement had fully hardened, the knee was reinspected. Any other cement extrusion was removed the final range of motion testing showed range of motion from 0-130 with excellent stability, both medial and laterally and appropriate alignment of the leg. Patella tracked normally. After the cemented hardened, the tourniquet was released and hemostasis was obtained. A second gram of transexamic acid was given intravenously. The knee was again irrigated. The knee was again taken through range of motion and found to be stable throughout all range of motion of 0-130, and the patella tracked normally. The fascia was then closed with 0 Vicryl followed by #2 strata fix suture. The subcutaneous tissue was closed with 3-0 Vicryl and 3-0 strata fix. Exofin glue was used for the skin and placed with the knee in flexion. After the glue had dried, and Optafoam silver impregnated dressing was applied. A lightly compressive dressing was applied using web roll and Rudy wrap. Patient was then transferred to the stretcher and taken to recovery room in stable condition. Sponge and needle counts were correct. The title i instructional assistant CAREN Brown was required due the complexity surgery and the need for a skilled surgical orderly. She assisted in positioning, draping, retraction, and closure of the wound.
[2022-11-03] MEDS ORDERED: LACTATED RINGERS 1,000 ML IV ONE (08:15)
[2022-11-03] MEDS: HYDROmorphone 0.5 MG/0.5 ML SYRINGE IVP PRN ×7 (09:55→23:27)
[2022-11-03] MEDS ORDERED: ONDANSETRON 4 MG/2 ML VIAL IVP ONE (10:55)
[2022-11-03] MEDS ORDERED: METOCLOPRAMIDE 5 MG/ML 2 ML VIAL IVP PRN (11:48)
[2022-11-03] MEDS ORDERED: TRIMETHOBENZAMIDE 100 MG/ML 2 ML VIAL IM STA (11:48)
--- NOTE | 2022-11-03 12:55 | XR ---
EXAMINATION TYPE: XR knee limited LT DATE OF EXAM: 11/03/2022 COMPARISON: NONE HISTORY: 67-year-old female postop alignment assessment TECHNIQUE: 2 views FINDINGS: Images show placement of left total knee arthroplasty. Both distal femoral and proximal tibial compon ents of the prosthesis are well seated without periprosthetic fracture. Alignment grossly anatomic. A nterior soft tissue swelling with soft tissue air as well as intra-articular air in joint fluid relat ed to recent operation. IMPRESSION: Uncomplicated postoperative appearance left total knee arthroplasty.
[2022-11-03] MEDS: HYDROcodone/APAP 7.5-325MG 1 EACH TAB PO PRN ×2 (13:31→18:43)
[2022-11-03] MEDS: SODIUM CHLORIDE 0.9% 1,000 ML IV SCH ×2 (15:23→20:26)
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
[2022-11-03 19:44] VITALS: RESP 16
[2022-11-03] MEDS: amLODIPine 5 MG TAB PO SCH (20:25)
[2022-11-03] MEDS ORDERED: PRAMIPEXOLE 0.25 MG TAB PO SCH (21:00)
[2022-11-03] MEDS ORDERED: SENNOSIDES-DOCUSATE SODIUM 1 EACH TAB PO SCH (21:00)
[2022-11-04] MEDS: HYDROcodone/APAP 7.5-325MG 1 EACH TAB PO PRN ×2 (01:16→06:19)
[2022-11-04] MEDS: HYDROmorphone 0.5 MG/0.5 ML SYRINGE IVP PRN (03:45)
[2022-11-04] MEDS: LACTATED RINGERS 1,000 ML IV SCH (03:48)
--- NOTE | 2022-11-04 07:03 | P.PN ---
Progress Note - Text Progress Note Date: 11/04/22 Postoperative day # 1 status post total knee arthroplasty, and adductor canal catheter placed for postoperative analgesia, currently at ropivacaine 0.2% 8 mL per hour and continuous infusion, visual analogue scale is 4-5/10, patient using oral pain medication for breakthrough pain. Assessment and plan= Acute postoperative pain, adductor canal catheter for pain control, we'll continue the same management.
[2022-11-04 07:34] VITALS: BP 150/80; PULSE 73; TEMP 98.3
[2022-11-04] MEDS: amLODIPine 5 MG TAB PO SCH (07:57)
[2022-11-04 09:13] LABS: African American GFR (CKD) 75.6 (60.0-200.0); Anion Gap 8.8 mmol/L (10.00-18.00); BUN/Creat Ratio 13.89 Ratio (12.00-20.00); Blood Urea Nitrogen 12.5 mg/dL (9.0-27.0); Calcium 9.8 mg/dL (8.7-10.3); Carbon Dioxide 23.2 mmol/L (20.0-27.5); Non-African American GFR(CKD) 65.2 (60.0-200.0); Potassium 4.2 mmol/L (3.5-5.5)
--- NOTE | 2022-11-04 09:24 | P.DS ---
Providers Expected date of discharge: 11/04/22 Attending physician: Jeremy Jesus Consults: 11/03/22 07:03 Consult Physician Routine Consulting Provider: Steven Dickson Consult Reason/Comments: medical management Do you want consulting provider notified?: Yes Primary care physician: Marilee London - Discharge Diagnosis(es) (1) Osteoarthritis of left knee Status: Acute (2) Status post left knee replacement Status: Acute Hospital Course: This is a 67 year-old female last seen in our office with complaints of left knee pain. The patient has a known history of degenerative arthritis of the left knee and presented to discuss options. After discussion and consideration the patient elected to proceed with a left total knee arthroplasty. The patient was seen preoperatively by her primary care physician and cleared for surgery. The patient was admitted to [facility] on 11/03/2022 and underwent a left total knee arthroplasty by Dr. Jeremy Jesus. The procedure was performed without complications or sequelae. The patient was seen and evaluated at bedside today. The patient's pain is well-controlled. The patient has no new complaints today denies any fevers, chills, nausea, vomiting, or shortness of breath. Vital signs are stable. The dressing is clean, dry and intact. Incision looks fine with no erythema or active drainage. Calf is soft and nontender. The patient has full ankle motion without difficulty. The patient's left lower extremity is neurovascularly intact. The patient is orthopedically stable for discharge home today in good condition. Pertinent Studies: Laboratory Tests 11/04/22 04:25 WBC 13.00 H RBC 3.46 L Hgb 10.5 L Hct 31.7 L Patient Condition at Discharge: Stable Plan - Discharge Summary Discharge Rx Participant: Yes New Discharge Prescriptions: New Ketorolac [Toradol] 10 mg PO Q6HR #20 tab Sennosides [Senokot] 2 tab PO DAILY PRN #60 tablet PRN Reason: Constipation Rivaroxaban [Xarelto] 20 mg PO W/SUPPER #30 tab HYDROcodone/APAP 10-325MG [[place] 10-325] 1 tab PO Q4HR PRN #32 tab PRN Reason: Pain Continue amLODIPine BESYLATE [Norvasc] 5 mg PO BID valACYclovir HCL [Valtrex] 500 mg PO BID PRN PRN Reason: Cold Sores Vit C/E/Zn/Coppr/Lutein/Zeaxan [Preservision Areds 2 Softgel] 1 each PO BID Losartan/Hydrochlorothiazide [Losartan-Hctz 50-12.5 mg Tab] 1 each PO QAM Acetaminophen [Tylenol Arthritis] 650 mg PO BID estradioL [Yuvafem] 10 mcg VG MOFR Pramipexole [Mirapex] 0.25 mg PO HS Discontinued traMADol HCL [Ultram] 100 mg PO HS HYDROcodone/APAP 5-325MG [[place] 5-325] 1 tab PO Q6H PRN 2 Days #5 tab PRN Reason: Pain Ibuprofen [Motrin Ib] 200 mg PO BID Discharge Medication List amLODIPine BESYLATE [Norvasc] 5 mg PO BID 11/22/18 [History] valACYclovir HCL [Valtrex] 500 mg PO BID PRN 05/30/19 [History] Vit C/E/Zn/Coppr/Lutein/Zeaxan [Preservision Areds 2 Softgel] 1 each PO BID 12/28/19 [History] Acetaminophen [Tylenol Arthritis] 650 mg PO BID 12/05/21 [History] Losartan/Hydrochlorothiazide [Losartan-Hctz 50-12.5 mg Tab] 1 each PO QAM [History] Pramipexole [Mirapex] 0.25 mg PO HS 12/05/21 [History] estradioL [Yuvafem] 10 mcg VG MOFR 10/30/22 [History] Sennosides [Senokot] 2 tab PO DAILY PRN #60 tablet 11/03/22 [Rx] HYDROcodone/APAP 10-325MG [[place] 10-325] 1 tab PO Q4HR PRN #32 tab 11/04/22 [Rx] Ketorolac [Toradol] 10 mg PO Q6HR #20 tab 11/04/22 [Rx] Rivaroxaban [Xarelto] 20 mg PO W/SUPPER #30 tab 11/04/22 [Rx] Follow up Appointment(s)/Referral(s): [facility] [NON-STAFF] - As Needed (Continuous Passive Motion knee machine) Marilee London MD [Primary Care Provider] - 11/11/22 10:30 am [facility] [[facility]] - As Needed Jeremy Jesus DO [Doctor of Osteopathic Medicine] - 11/18/22 10:30 am Patient Instructions/Handouts: Precautions after Total Joint Replacement Surgery (DC), Joint Replacement Surgery (DC) Activity/Diet/Wound Care/Special Instructions: Weightbearing as tolerated with a walker. CPM 5-6h daily as tolerated. Leave dressing intact. Dressing may be removed by home care nurse or by patient in 7 days. Then change dressing twice daily until follow up. May shower with initial dressing intact and after removal. If dressing become saturated, please remove. Recommend use of compression stockings daily until follow up to help prevent swelling and blood clots. May remove at night before sleeping. Please resume Xarelto. Please follow up with [facility] and call with any questions or concerns, . Discharge Disposition: HOME WITH HOME HEALTH SERVICES
[2022-11-04 09:30] LABS: Basophils # (A) 0.02 X 10*3/uL (0.00-0.10); Basophils % (A) 0.2 %; Eosinophils # (A) 0 X 10*3/uL (0.04-0.35); Eosinophils % (A) 0 %; HCT 31.7 % (37.2-46.3); HGB 10.5 g/dL (12.0-15.0); Immature Grans, Automated 0.4 %; Lymphocytes # (A) 1.22 X 10*3/uL (0.90-5.00); Lymphocytes % (A) 9.4 %; MCH 30.3 pg (27.0-32.0); MCHC 33.1 g/dL (32.0-37.0); MCV 91.6 fL (80.0-97.0); Mean Platelet Volume 10.6 fL (9.5-12.2); Monocytes # (A) 1.25 X 10*3/uL (0.20-1.00); Monocytes % (A) 9.6 %; NRBC Per 100 WBC 0 /100 WBCS (0.0-0.0); Neutrophils # (A) 10.46 X 10*3/uL (1.80-7.70); Neutrophils % (A) 80.4 %; Platelet Count 238 X 10*3/uL (140-440); RBC 3.46 X 10*6/uL (4.10-5.20)
[2022-11-04] MEDS: SODIUM CHLORIDE 0.9% 1,000 ML IV SCH (10:06)
--- NOTE | 2022-11-04 15:07 | P.PN ---
Subjective Progress Note Date: 11/04/22 This is a pleasant 67 year old female who presents for an elective total left knee replacement. Patient has a past medical history of paroxysmal atrial fibrillation, gerd, hypertension, hyperlipidemia, cervical cancer, degenerative disc disease with prior cervical fusion, former smoker years ago. Prior right hip replacement. Patient is evaluated today postoperatively on the medical floor. Pain is being managed with IV dilaudid. Patient has been started on xarelto for DVT prophylaxis. Currently being hydrated. Blood pressure in the 130-140s systolic and will recommending holding off on losartan/hctz combination patient will be resumed on amlodipine. PT/OT evaluation pending. 11/04/2022 Patient is evaluated today postoperative day #2 total left knee arthroplasty. Patient is report significant pain 8/10 to the left knee which is using oral norco for this, patient does have chronic pain at baseline. Patient is able to ambulate and states the norco is bringing the pain down is requesting for pain medication prior to the car ride home. Patient reports not taking the xarelto daily at home as she takes motrin and was told not to take them together. 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 Discussed with patient to continue the xarelto for now as recommending by orthopedics also for the DVT prophylaxis following surgery. Patient is agreeable and the script has been refilled for her. Patient denies shortness of breath, no chest pain, passing gas. No BM yet. Blood pressure improved to 127/62. Review of Systems Constitutional: Denied any fatigue denied any fever. Cardio vascular: denied any chest pain, palpitations Gastrointestinal: denied any nausea, vomiting, diarrhea Pulmonary: Denied any shortness of breath cough Neurologic denied any new focal deficits All inpatient medications were reviewed and appropriate changes in these medications as dictated in the interval history and assessment and plan. PHYSICAL EXAMINATION: GENERAL: The patient is alert and oriented x3, not in any acute distress. Well developed, well nourished. HEENT: Pupils are round and equally reacting to light. EOMI. No scleral icterus. No conjunctival pallor. Normocephalic, atraumatic. No pharyngeal erythema. No thyromegaly. CARDIOVASCULAR: S1 and S2 present. No murmurs, rubs, or gallops. PULMONARY: Chest is clear to auscultation, no wheezing or crackles. ABDOMEN: Soft, nontender, nondistended, normoactive bowel sounds. No palpable organomegaly. MUSCULOSKELETAL: No joint swelling or deformity. EXTREMITIES: No cyanosis, clubbing, or pedal edema. Post surgical left knee dressing intact. NEUROLOGICAL: Gross neurological examination did not reveal any focal deficits. SKIN: No rashes. Assessment and Plan Assessment Osteoarthritis status post total left knee arthroplasty Hypertension resumed on amlodipine History of hyperlipidemia History of paroxysmal atrial fibrillation noncompliant with the xarelto ou tpatient. GERD Oshea's Esophagus history History of cervical cancer History of cervical degenerative disc disease and prior cervical fusion GI prophylaxis DVT prophylaxis deferred to primary service Full Code Plan Resume home blood pressure medication on discharge Encourage incentive spirometer Anticoagulation per primary recommending patient to continue on home xarelto which patient states she only takes occasionally. Patient is agreeable to resume on discharge and will follow up with providers to discuss duration of anticoagulation. Note that patient does have paroxysmal atrial fibrillation and currently is maintaining sinus mechanism. Thank you kindly for this consultation medically patient is stable for discharge home. The impression and plan of care has been dictated by Una Abarca Nurse Practitioner as directed. Dr. Fartun MD I have performed a history and physical examination and medical decision making of this patient, discussed the same with the dictator, and agree with the dictators assessment and plan as written, documented as a scribe. Based on total visit time, I have performed more than 50% of this visit. Objective - Vital Signs Vital signs: Vital Signs Temp 98.3 F 11/04/22 06:57 Pulse 73 11/04/22 06:57 Resp 16 11/04/22 06:57 BP 150/80 11/04/22 06:57 Pulse Ox 94 L 11/04/22 06:57 FiO2 Intake & Output 11/03/22 11/04/22 11/04/22 18:59 06:59 18:59 Intake Total 951 Output Total 30 Balance 921 Weight 83.8 kg Intake: IV 951 Output: Estimated Blood Loss 30 Other: # Voids 2 1 - Labs CBC & Chem 7: 11/04/22 04:25 11/04/22 04:25 Labs: Abnormal Lab Results - Last 24 Hours (Table) 11/04/22 11/04/22 Range/Units 04:25 04:25 WBC 13.00 H (4.50-10.00) X 10*3/uL RBC 3.46 L (4.10-5.20) X 10*6/uL Hgb 10.5 L (12.0-15.0) g/dL Hct 31.7 L (37.2-46.3) % Immature Gran # 0.05 H (0.00-0.04) X 10*3/uL Neutrophils # 10.46 H (1.80-7.70) X 10*3/uL Monocytes # 1.25 H (0.20-1.00) X 10*3/uL Eosinophils # 0 L (0.04-0.35) X 10*3/uL Anion Gap 8.80 L (10.00-18.00) mmol/L Glucose 133 H (70-110) mg/dL Assessment and Plan Time with Patient: Less than 30
[2022-11-04] MEDS ORDERED: RIVAROXABAN 20 MG TAB PO SCH (17:30)
== END 2022-11-04 11:56 | disposition home health service (06) ==
LOC: OR 05:34 → 4SSUR 08:35 → OR 11-04 11:56
PROVIDERS: ATTEND Orthopaedic Surgery
DX: M17.12 Unilateral primary osteoarthritis, left knee (principal); I10 Essential (primary) hypertension; E78.5 Hyperlipidemia, unspecified; K21.9 Gastro-esophageal reflux disease without esophagitis; Z79.899 Other long term (current) drug therapy; Z88.8 Allergy status to other drugs, medicaments and biological substances; Z86.69 Personal history of other diseases of the nervous system and sense organs; Z85.41 Personal history of malignant neoplasm of cervix uteri
CPT/HCPCS: 27447; 97161; 97165; 64999; 64448; 80048; 85025; 88300; 73560; C1713; C1776; C1751; J2250; J1100; J3250; J0690 ×2; J2405; J3010 ×2; J2795; J2704; J1170 ×2

== ENCOUNTER → 2023-01-20 | Outpatient (CLI) | payer MEDICARE ==
[2023-01-20 12:07] LABS: ALT 25 U/L (8-49); AST 26 U/L (13-35); Chol/HDL Ratio 3.49 Ratio
== END | disposition home or self-care (01) ==
LOC: LABWHC1 08:05
PROVIDERS: ATTEND Internal Medicine Interventional Cardiology
DX: E78.2 Mixed hyperlipidemia (principal)
CPT/HCPCS: 36415; 80061; 84450; 84460

== ENCOUNTER → 2023-01-20 | Outpatient (CLI) | payer MEDICARE ==
[2023-01-20 09:42] VITALS: BP 129/82; PULSE 62; RESP 16; TEMP 97.9
--- NOTE | 2023-01-20 10:11 | P.HPOB ---
History of Present Illness H&P Date: 01/20/23 Chief Complaint: The patient is here for her routine gynecologic exam and ma mmogram. This is a 67-year-old with an LMP of 1978. She is status post KEYSHAWN for microinvasive cervical cancer. She also has a history of lichen sclerosus of the vulva. She states the lichen sclerosus symptoms have significantly improved since using the vaginal estrogen tablet and she states she has not needed the Temovate ointment this year. She is without gynecologic complaints. Review of Systems The patient has lost 10 pounds over the last year. She denies respiratory, cardiac, or G.I. problems. 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 History of Any Multi-Drug Resistant Organisms: None Reported Past Surgical History: Appendectomy, Back Surgery, Hysterectomy, Joint Replacement, Orthopedic Surgery, Tonsillectomy Additional Past Surgical History / Comment(s): Carpal tunnel-BILAT, D & C, Conization of Cervix, EGD, LT KNEE arthroscopy, BILAT IRIDOTOMY/bilateral cataract removals,CERVICAL FUSION X 2 ,CLOSED REDUCTION RT WRIST X 3 CHILD. rt basal joint arthrosplasty rt thumb, lumbar fusion. Colonoscopy with upper endoscopy in 2019. rt hip replacement. Upper endoscopy 2021. left knee replacement Past Anesthesia/Blood Transfusion Reactions: Postoperative Nausea & Vomiting (PONV) Additional Past Anesthesia/Blood Transfusion Reaction / Comment(s): had nausea/gagging with lumbar fusion surgery Past Psychological History: No Psychological Hx Reported Additional Psychological History / Comment(s): Pt resides with her spouse Smoking Status: Former smoker Past Alcohol Use History: None Reported Additional Past Alcohol Use History / Comment(s): smoked occ in age 20's and 30's Past Drug Use History: None Reported Additional Drug Use History / Comment(s): CBD Additional History: 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 - Past Family History Brother(s) Family Medical History: Cancer, Osteoarthritis (OA) Additional Family Medical History / Comment(s): Prostate cancer. Mother Family Medical History: Osteoarthritis (OA) Additional Family Medical History / Comment(s): Aortic stenosis. Father Family Medical History: Cancer, Osteoarthritis (OA) Additional Family Medical History / Comment(s): Father had prostate cancer. Medications and Allergies Home Medications Medication Instructions Recorded Confirmed Type amLODIPine BESYLATE [Norvasc] 5 mg PO BID 11/22/18 01/20/23 History valACYclovir HCL [Valtrex] 500 mg PO BID PRN 05/30/19 01/20/23 History Vit C/E/Zn/Coppr/Lutein/Zeaxan 1 each PO BID 12/28/19 01/20/23 History [Preservision Areds 2 Softgel] Acetaminophen [Tylenol Arthritis] 650 mg PO BID 12/05/21 01/20/23 History Losartan/Hydrochlorothiazide 1 each PO QAM 12/05/21 01/20/23 History [Losartan-Hctz 50-12.5 mg Tab] Pramipexole [Mirapex] 0.25 mg PO HS 12/05/21 01/20/23 History estradioL [Yuvafem] 10 mcg VG MOFR 10/30/22 01/20/23 History Sennosides [Senokot] 2 tab PO DAILY PRN #60 tablet 11/03/22 01/20/23 Rx HYDROcodone/APAP 10-325MG [[place] 1 tab PO Q4HR PRN #32 tab 11/04/22 01/20/23 Rx 10-325] Ketorolac [Toradol] 10 mg PO Q6HR #20 tab 11/04/22 01/20/23 Rx Rivaroxaban [Xarelto] 20 mg PO W/SUPPER #30 tab 11/04/22 01/20/23 Rx Rosuvastatin [Crestor] 10 mg PO DAILY 01/20/23 01/20/23 History Allergies Allergy/AdvReac Type Severity Reaction Status Date / Time nickel Allergy Unknown Rash/Hives Verified 01/20/23 09:19 methylprednisolone AdvReac sleeplessne Verified 01/20/23 09:19 [From Depo-Medrol] ss,active Exam Vital Signs Temp Pulse Resp BP Pulse Ox 01/20/23 09:40 97.9 F 62 16 129/82 98 Intake and Output 01/19/23 01/20/23 01/20/23 22:59 06:59 14:59 Other: Weight 78.018 kg Height 5 feet 7 inches, weight 172 pounds, BMI 26.9. This is a well-developed well-nourished white female who is alert and oriented times 3 in no acute distress. HEENT: Within normal limits. NECK: Supple without mass or thyromegaly. CHEST AND LUNGS: Clear to auscultation. HEART: Regular rate and rhythm. BREASTS: Are without mass or discharge. AXILLARY EXAM: Negative for adenopathy. BACK: Negative for CVA tenderness. ABDOMEN: Soft, nontender, without palpable masses. PELVIC EXAM: External genitalia appears normal with mild atrophy. Vagina appears normal with mild atrophy. There is no significant pallor noted on the vulva. There is no evidence of prolapse. Bimanual examination is negative for mass or tenderness. RECTAL EXAM: Rectovaginal exam is negative for mass or tenderness and is negative for occult blood. EXTREMITIES: Nontender. IMPRESSION: 1. 67-year-old menopausal female status post KEYSHAWN for microinvasive cervical cancer in 1978, with no evidence of recurrence on exam today. 2. History of lichen sclerosus of the vulva symptomatically improved with vaginal estrogen. 3. History of osteopenia. PLAN: 1. Pap smear of the vaginal cuff was performed because of her history of microinvasive cervical cancer. We will continue to do this yearly. 2. Self breast awareness was discussed with the patient. We have also discussed symptoms associated with inflammatory breast cancer. 3. Screening mammogram will be done today. 4. Osteoporosis prevention was discussed. I have stressed the importance of adequate calcium, vitamin D and regular exercise. Recommended amounts of calcium and vitamin D were also discussed. Bone density testing will be done today. 5. Continue Yuvafem vaginal estrogen tablets twice weekly. The electronic prescription will be sent to her pharmacy. She is declining a prescription for Temovate ointment since she has not needed this year. 6. She was advised to return in one year for her annual well woman exam.
--- NOTE | 2023-01-20 10:54 | BD ---
EXAMINATION TYPE: Axial Bone Density DATE OF EXAM: 01/20/2023 CLINICAL HISTORY: 67 years old Female. ICD-10 CODE: Z780 POST DORIS WITHOUT HRT Height: 65.5in Weight: 179lb FRAX RISK QUESTIONS: History of Fracture in Adulthood: yes Secondary Osteoporosis: 3. Menopause before 45: partial hysterectomy at 23 RISK FACTORS HISTORY OF: Surgery to Spine/Hip(right/left)/Wrist (right/left): lumbar fusion age 62, RTHA age 64 Active: yes Postmenopausal woman: yes Take estrogen and/or progesterone medications: yes, none current How long: about 1 year Lost more than 2 inches in height since high school: yes MEDICATIONS: Additional Medications: cholesterol med, bp meds Additional History: cervical cancer EXAM MEASUREMENTS: Bone mineral densitometry was performed using the [employer] System. Bone mineral density about the L hip (g/cm2): 0.965 T Score values are as follows: -----L Neck: -1.1 -----L Total: -0.3 Z Score values are as follows: -----L Neck: 0.2 -----L Total: 0.7 Bone mineral density has: Decreased -15.3% since study of: 07-23-20 Bone mineral density about the L Wrist (g/cm2): 0.524 T Score values are as follows: -----Dist. R+U: -1.7 -----Prox. R+U: -1.6 -----Radius total: -2.2 Z Score values are as follows: -----Dist. R+U: 0.1 -----Prox. R+U: 0.2 -----Radius total: -0.5 Bone mineral density has: Decreased -2.5% since study of: 07-23-20 FRAX%s: The graph provided illustrates a 14.1% chance for a major osteoporotic fx and a 1.4% chance f or the hips probability for fx in 10 years time. IMPRESSION: Osteopenia (T Score between -2.5 and -1). There is slightly increased risk of fracture and the patient may be considered for treatment. Re-Screen 2-5 years. NOTE: T-SCORE=SD OF THE YOUNG ADULT MEAN.
--- NOTE | 2023-01-22 08:09 | MM ---
Reason for Exam: Screening (asymptomatic). Last mammogram was performed 1 year(s) and 1 month(s) ago. Patient History: Menarche at age 11. First Full-Term at age 16. Hysterectomy at age 23. Postmenopausal. Endometrial cancer, age 23. Patient used Estrogen for 1 year. Paternal aunt had breast cancer, age 74. Risk Values: Roselyn 5 year model risk: 1.2%. NCI Lifetime model risk: 3.9%. Prior Study Comparison: 11/22/2018 Bilateral Screening Mammogram, [facility]. 07/23/2020 Bilateral Screening Mammogram, [facility]. 01/06/2022 Bilateral MG 3D screening mammo w/cad, [facility]. Tissue Density: There are scattered fibroglandular densities. Findings: Analyzed By CAD. There is no suspicious group of microcalcifications or new suspicious mass in either breast. Overall Assessment: Negative, BI-RAD 1 Management: Screening Mammogram of both breasts in 1 year. A clinical breast exam by your physician is recommended on an annual basis and results should be correlated with mammographic findings. Note on Roselyn scores and lifetime risk: 1. A Roselyn score greater than 3% is considered moderate risk. If this is the case, consider specialist referral to assess eligibility for a risk reducing agent. If overall lifetime risk for the development of breast cancer is 20% or higher, the patient may qualify for future screening with alternating mammogram and breast MRI. Electronically signed and approved by: Rajiv Merino D.O.
== END ==
LOC: WWCWWP 09:09
PROVIDERS: ATTEND Obstetrics & Gynecology
DX: Z01.419 Encounter for gynecological examination (general) (routine) without abnormal findings (principal); L90.0 Lichen sclerosus et atrophicus; I48.91 Unspecified atrial fibrillation; K21.9 Gastro-esophageal reflux disease without esophagitis; E78.5 Hyperlipidemia, unspecified; I10 Essential (primary) hypertension; M19.90 Unspecified osteoarthritis, unspecified site; M50.30 Other cervical disc degeneration, unspecified cervical region; Z12.31 Encounter for screening mammogram for malignant neoplasm of breast; Z78.0 Asymptomatic menopausal state; Z90.711 Acquired absence of uterus with remaining cervical stump; Z87.39 Personal history of other diseases of the musculoskeletal system and connective tissue; Z91.048 Other nonmedicinal substance allergy status; Z88.8 Allergy status to other drugs, medicaments and biological substances; Z85.41 Personal history of malignant neoplasm of cervix uteri; Z87.891 Personal history of nicotine dependence; Z79.01 Long term (current) use of anticoagulants
CPT/HCPCS: 77063; 77067; 77080

== ENCOUNTER → 2023-07-16 | Outpatient (CLI) | payer MEDICARE ==
[2023-07-16 16:17] LABS: BUN/Creat Ratio 20.62 Ratio (12.00-20.00); Blood Urea Nitrogen 16.5 mg/dL (9.0-27.0); Carbon Dioxide 23.4 mmol/L (21.6-31.8); Chloride 104 mmol/L (96-109); Chol/HDL Ratio 3.56 Ratio; Glucose 90 mg/dL (70-110); Potassium 4.7 mmol/L (3.5-5.5); Sodium 139 mmol/L (135-145)
[2023-07-16 16:18] LABS: ALT 29 U/L (8-49); AST 31 U/L (13-35); Albumin 4.4 g/dL (3.8-4.9); Albumin/Globulin Ratio 1.76 Ratio (1.60-3.17); Alkaline Phosphatase 87 U/L (41-126); Calcium 10.7 mg/dL (8.7-10.3); Globulin 2.5 g/dL (1.6-3.3); Total Bilirubin 0.6 mg/dL (0.3-1.2); Total Protein 6.9 g/dL (6.2-8.2)
== END | disposition home or self-care (01) ==
LOC: LABWHC1 07:56
PROVIDERS: ATTEND Internal Medicine Interventional Cardiology
DX: Z11.59 Encounter for screening for other viral diseases (principal); Z01.84 Encounter for antibody response examination; I10 Essential (primary) hypertension; E78.2 Mixed hyperlipidemia
CPT/HCPCS: 36415; 80053; 80061; 86787; 86803

== ENCOUNTER → 2024-01-05 | Outpatient (CLI) | payer MEDICARE ==
[2024-01-05 16:08] LABS: ALT 27 U/L (8-49); AST 28 U/L (13-35); LDL Cholesterol,Calculated 115.4 mg/dL (0.0-131.0)
== END | disposition home or self-care (01) ==
LOC: LABWHC1 08:33
PROVIDERS: ATTEND Internal Medicine Interventional Cardiology
DX: E78.2 Mixed hyperlipidemia (principal); E83.52 Hypercalcemia
CPT/HCPCS: 36415; 80061; 83970; 84450; 84460